=== PATIENT | female | born 1970 | race Caucasian/White ===

== ENCOUNTER 2020-04-18 17:02 | Outpatient (REF) | payer OTHER, SELFPAY ==
[2020-04-18 18:10] LABS: Glucose Urine UA NEG (NEG); Leukocyte Esterase Urine NEG (NEG); Nitrite Urine NEG (NEG); Specific Gravity - Urine 1.025 (1.005-1.025); Urine Blood NEG (NEG); Urine Ketones NEG (NEG); Urine Protein NEG (NEG-TRACE)
[2020-04-18 18:12] LABS: Appearance Urine CLEAR; Color Urine YELLOW
== END 2020-04-18 17:03 | disposition home or self-care (01) ==
LOC: HO.LAB 17:02
PROVIDERS: Visit Provider Internal Medicine
DX: R39.9 Unspecified symptoms and signs involving the genitourinary system (principal)
CPT/HCPCS: 81003

== ENCOUNTER 2020-04-28 10:43 | Outpatient (REF) | payer OTHER, SELFPAY ==
[2020-04-28 11:06] LABS: COVID-19 Test Negative (Negative)
== END 2020-04-28 10:44 | disposition home or self-care (01) ==
LOC: HO.EMPCOV 10:43
PROVIDERS: PCP Internal Medicine; Visit Provider Internal Medicine
DX: Z20.828 Contact with and (suspected) exposure to other viral communicable diseases (principal)
CPT/HCPCS: 87635; C9803

== ENCOUNTER 2020-05-16 14:46 | Outpatient (REF) | payer OTHER, SELFPAY ==
--- NOTE | 2020-05-16 | XR_ITS ---
EXAMINATION: XR LUMBOSACRAL SPINE CLINICAL INFORMATION: Pain COMPARISON: None TECHNIQUE: Three views of the lumbosacral spine. FINDINGS: Bone alignment is normal. No fracture or dislocation is seen. Disc spaces are normal. There is lower lumbar spine facet arthritis. XR/XR lumbar spine 2-3V IMPRESSION: Lower lumbar spine facet arthritis.
== END 2020-05-16 14:47 | disposition home or self-care (01) ==
LOC: HO.XRAY 14:46
PROVIDERS: PCP Internal Medicine; Visit Provider Internal Medicine
DX: M54.9 Dorsalgia, unspecified (principal)
CPT/HCPCS: 72100

== ENCOUNTER 2020-06-11 15:19 | Outpatient (REF) | payer OTHER, SELFPAY ==
[2020-06-11 15:59] LABS: COVID-19 Test Negative (Negative)
== END 2020-06-11 15:20 | disposition home or self-care (01) ==
LOC: HO.EMPCOV 15:19
PROVIDERS: Visit Provider Internal Medicine
DX: Z20.828 Contact with and (suspected) exposure to other viral communicable diseases (principal)
CPT/HCPCS: 87635

== ENCOUNTER 2020-06-21 14:37 | Outpatient (REF) | payer OTHER, SELFPAY ==
[2020-06-21 15:09] LABS: COVID-19 Test Negative (Negative); IDNOW Serial# 55D5AD1C
== END 2020-06-21 14:38 | disposition home or self-care (01) ==
LOC: HO.EMPCOV 14:37
PROVIDERS: Visit Provider Internal Medicine
DX: Z20.828 Contact with and (suspected) exposure to other viral communicable diseases (principal)
CPT/HCPCS: 36415; 87635; C9803

== ENCOUNTER 2020-07-11 15:46 | Outpatient (REF) | payer OTHER, SELFPAY ==
[2020-07-11 17:50] LABS: COVID-19 Test Negative (Negative); IDNOW Serial# 55D5AD1C
== END 2020-07-11 15:47 | disposition home or self-care (01) ==
LOC: HO.EMPCOV 15:46
PROVIDERS: Visit Provider Internal Medicine
DX: Z20.822 Contact with and (suspected) exposure to COVID-19 (principal)
CPT/HCPCS: 36415; 87635; C9803

== ENCOUNTER 2020-07-27 09:54 | Outpatient (REF) | payer OTHER, SELFPAY ==
--- NOTE | ~2020-07-27 | US_ITS ---
EXAMINATION: US PELVIS COMPLETE US PELVIS TRANSVAGINAL CLINICAL INFORMATION: Pelvic and perineal pain. COMPARISON: None TECHNIQUE: Transabdominal and transvaginal imaging was performed. FINDINGS: The uterus is of normal size and echogenicity measuring 7.2 x 3.2 x 3.8 cm. Tiny echogenic foci within the lower uterine segment/cervix as well as adjacent to the endometrium, which may represent small calcifications. A regular homogeneous endometrium is identified measuring 0.2 cm. Trace fluid within the endometrial cavity. The right ovary is sonographically unremarkable and measures 1.7 x 1.0 x 1.0 cm for a volume of 0.9 mL. The left ovary is not seen. Prominence of the left adnexal vasculature, which can be seen in the setting of pelvic congestion. There is no pelvic free fluid. US/US pelvic complete IMPRESSION: 1. Trace fluid within the endometrium. No endometrial thickening. Probable tiny calcifications associated with the endometrium and lower uterine segment/cervix. No discrete polyp or mass. 2. Sonographically unremarkable right ovary. Left ovary not seen. 3. Prominence of the left adnexal vasculature, which can be seen in the setting of pelvic congestion.
--- NOTE | ~2020-07-27 | US_ITS ---
EXAMINATION: US PELVIS COMPLETE US PELVIS TRANSVAGINAL CLINICAL INFORMATION: Pelvic and perineal pain. COMPARISON: None TECHNIQUE: Transabdominal and transvaginal imaging was performed. FINDINGS: The uterus is of normal size and echogenicity measuring 7.2 x 3.2 x 3.8 cm. Tiny echogenic foci within the lower uterine segment/cervix as well as adjacent to the endometrium, which may represent small calcifications. A regular homogeneous endometrium is identified measuring 0.2 cm. Trace fluid within the endometrial cavity. The right ovary is sonographically unremarkable and measures 1.7 x 1.0 x 1.0 cm for a volume of 0.9 mL. The left ovary is not seen. Prominence of the left adnexal vasculature, which can be seen in the setting of pelvic congestion. There is no pelvic free fluid. US/US transvaginal IMPRESSION: 1. Trace fluid within the endometrium. No endometrial thickening. Probable tiny calcifications associated with the endometrium and lower uterine segment/cervix. No discrete polyp or mass. 2. Sonographically unremarkable right ovary. Left ovary not seen. 3. Prominence of the left adnexal vasculature, which can be seen in the setting of pelvic congestion.
== END 2020-07-27 09:55 | disposition home or self-care (01) ==
LOC: HO.HMGCX 09:54
PROVIDERS: PCP Internal Medicine; Visit Provider Internal Medicine
DX: R10.2 Pelvic and perineal pain (principal)
CPT/HCPCS: 76830; 76856

== ENCOUNTER 2020-08-08 15:04 | Outpatient (REF) | payer OTHER, SELFPAY ==
[2020-08-08 16:18] LABS: COVID-19 Test Negative (Negative)
== END 2020-08-08 15:05 | disposition home or self-care (01) ==
LOC: HO.EMPCOV 15:04
PROVIDERS: Visit Provider Internal Medicine
DX: Z20.822 Contact with and (suspected) exposure to COVID-19 (principal)
CPT/HCPCS: 36415; 87635; C9803

== ENCOUNTER 2020-08-11 08:11 | Outpatient (REF) | payer OTHER, SELFPAY ==
--- NOTE | ~2020-08-11 | MM_ITS ---
EXAMINATION: MM SCREENING DIGITAL BREAST TOMOSYNTHESIS, BILATERAL CLINICAL INFORMATION: Screening. Asymptomatic. The lifetime risk of breast cancer based on the Tyrer-Cuzick Model is 16%. COMPARISON: Mammography: 08/06/2019, 08/22/2017, 08/21/2016 TECHNIQUE: Digital breast tomosynthesis is performed in both the craniocaudal and mediolateral oblique views along with computer-aided detection (CAD). Synthesized 2D images are generated from the tomosynthesis. FINDINGS: There are scattered areas of fibroglandular density (ACR BI-RADS breast composition Category b). Left breast is unremarkable. There is no architectural abnormality or mass or developing density. Neither breast shows abnormal calcifications. The skin contours are smooth. The right CC view has focal converging lines central breast just medial to midline, 5.6 cm from nipple. This could represent incompletely compressed glandular tissue. Patient will be recalled for additional imaging. The right MLO view has a dermal lesion overlying the posterior inferior lateral breast. There is also a 0.7 cm nodule 12 cm from nipple along the posterior nipple line, not previously imaged, possibly low lying axillary node. Definitive fatty hilus is not clearly appreciated. This will also be further assessed at time of recall. MM/MM tomosynthesis screening BI IMPRESSION: Right: -Finding 1: Question architectural changes central inner breast on CC view. -Finding 2: Nodule 0.7 cm posterior breast, possibly low axillary tail node. Left: -No mammographic evidence of malignancy. ASSESSMENT: BI-RADS 0: Incomplete - Need Additional Imaging Evaluation RECOMMENDATION: 1. Additional views of the right breast (finding 1: 3-D spot CC, 3-D rolled CC x2) and (finding 2: 3D spot MLO small paddle). 2. Targeted ultrasound if warranted after review of the additional views. 3. Radiology department staff will contact the patient for additional imaging. This patient's information was entered into a reminder system with a target due date for their next mammogram.
== END 2020-08-11 08:12 | disposition home or self-care (01) ==
LOC: HO.MAMMO 08:11
PROVIDERS: Visit Provider Internal Medicine
DX: Z12.31 Encounter for screening mammogram for malignant neoplasm of breast (principal)
CPT/HCPCS: 77063; 77067

== ENCOUNTER 2020-08-18 09:23 | Outpatient (REF) | payer OTHER, SELFPAY ==
--- NOTE | ~2020-08-18 | MM_ITS ---
EXAMINATION: MM DIAGNOSTIC DIGITAL BREAST TOMOSYNTHESIS, RIGHT US DIAGNOSTIC ULTRASOUND BREAST, RIGHT CLINICAL INFORMATION: Recall from screening for question of architectural changes inferior anterior right breast on CC tomography and for a second finding, benign-appearing nodule low axillary tail right breast. COMPARISON: Mammography: 08/11/2020, 08/06/2019, 08/22/2017 TECHNIQUE: Digital breast tomosynthesis is performed. 2D images are generated from the tomosynthesis. The following views are obtained: 3-D spot CC, 3-D rolled CC x2; 3-D spot MLO. Ultrasound right breast is targeted to the inferior breast 3:00 through 9:00 position. Ultrasound also targeted to the posterior lateral breast and low axilla. Grayscale imaging and color Doppler are performed without and with harmonics. FINDINGS: There are scattered areas of fibroglandular density (ACR BI-RADS breast composition Category b). Additional spot MLO view right axilla shows small circumscribed nodule low axillary tail with fatty hilus consistent with intramammary node. Additional views for the anterior breast demonstrates questionable converging lines on spot CC tomography, but no asymmetric density or architectural changes either on the rolled CC projections nor on recent MLO tomography. Ultrasound anterior inferior breasts demonstrate no cystic or solid mass or architectural abnormality. No focal duct ectasia. No skin thickening. Ultrasound posterior lateral breast/low axilla demonstrates incidental benign node under 1 cm with normal ramez architecture and color flow. Preliminary results are discussed with the patient at time of visit. No definite architectural abnormality anterior right breast. Management plan is for short interval six-month follow-up diagnostic mammography. MM/MM tomosynthesis added views R IMPRESSION: 1. No definite architectural abnormality anterior right breast. No ultrasound correlate. 2. Incidental small low right axillary tail node, benign. ASSESSMENT: BI-RADS 3: Probably Benign RECOMMENDATION: 1. Diagnostic right mammography in 6 months. 2. Comment: Patient noted she may be considering reduction mammoplasty. If this is anticipated to be performed prior to the 6 month follow up imaging, then may consider further assessment with breast MR. This patient's information was entered into a reminder system with a target due date for their next mammogram.
== END 2020-08-18 09:24 | disposition home or self-care (01) ==
LOC: HO.MAMMO 09:23
PROVIDERS: PCP Nurse Practitioner Women's Health; Visit Provider Internal Medicine
DX: N63.31 Unspecified lump in axillary tail of the right breast (principal)
CPT/HCPCS: 76642; 77061; 77065

== ENCOUNTER 2020-08-21 10:00 | Outpatient (RCR) | payer OTHER, SELFPAY | END 2020-10-13 15:07 | disposition home or self-care (01) | LOC: HO.PTCHIC 10:00 | PROVIDERS: PCP Internal Medicine; Visit Provider Physical Medicine & Rehabilitation | DX: M54.5 Low back pain (principal) | CPT/HCPCS: 97014; 97110; 97112; 97140; 97161; 97530 ==

== ENCOUNTER 2020-08-25 17:58 | Outpatient (REF) | payer OTHER, SELFPAY ==
--- NOTE | ~2020-08-25 | MR_ITS ---
EXAMINATION: MR LUMBAR SPINE WITHOUT CONTRAST CLINICAL INFORMATION: Evaluate for disc herniation. Left leg pain. Low back pain. COMPARISON: X-ray dated 05/16/2020 TECHNIQUE: MRI of the lumbar spine was obtained using routine sequences without contrast. FINDINGS: VERTEBRAL BODIES AND PARASPINAL STRUCTURES: There is dift-jr-emnzmvoi inferior endplate edema at the L5 level, presumably reactive with a small endplate Schmorl's node. No compression fractures or subluxations are seen. The paraspinal soft tissues appear normal. Small renal cysts noted. There are mild degenerative changes of the sacroiliac joints partially visualized. CONUS MEDULLARIS AND CAUDA EQUINA: Normal, terminating at the level of L1. No lower cord signal abnormality is seen. The cauda equina nerve roots are normal. SPINAL LEVELS: L1-L2: No disc pathology. No central canal stenosis or foraminal narrowing. L2-L3: Small left paracentral disc protrusion. No central canal stenosis or foraminal encroachment. L3-L4: No significant disc pathology. Patent central canal and foramina. L4-L5: Very small central disc protrusion without central canal stenosis or foraminal narrowing. L5-S1: Mild loss of disc height and shallow right paracentral disc protrusion with inferior endplate edema at the L5 level. Stgp-au-swcejfvz facet arthropathy, more so on the left side. No central canal stenosis or foraminal narrowing. MR/MR lumbar spine wo con IMPRESSION: Mild lumbar spondylosis with small disc protrusions at the L2-L3, L4-L5, and L5-S1 levels. No central canal stenosis or foraminal narrowing. Ppcr-og-yzkroevb inferior endplate edema at the L5 level, presumably reactive.
== END 2020-08-25 17:59 | disposition home or self-care (01) ==
LOC: HO.MRI 17:58
PROVIDERS: Visit Provider Physical Medicine & Rehabilitation
DX: M54.5 Low back pain (principal); M79.605 Pain in left leg
CPT/HCPCS: 72148

== ENCOUNTER 2020-08-28 15:00 | Outpatient (REF) | payer OTHER, SELFPAY ==
[2020-08-28 15:40] LABS: COVID-19 Test Negative (Negative)
== END 2020-08-28 15:01 | disposition home or self-care (01) ==
LOC: HO.LAB 15:00
PROVIDERS: Visit Provider Internal Medicine
DX: Z20.822 Contact with and (suspected) exposure to COVID-19 (principal)
CPT/HCPCS: 36415; 87635; C9803

== ENCOUNTER 2020-08-30 15:18 | Outpatient (REF) | payer OTHER, SELFPAY ==
[2020-08-30 15:41] LABS: COVID-19 Test Negative (Negative); IDNOW Serial# 55D5AD1C
== END 2020-08-30 15:19 | disposition home or self-care (01) ==
LOC: HO.EMPCOV 15:18
PROVIDERS: Visit Provider Internal Medicine
DX: Z20.822 Contact with and (suspected) exposure to COVID-19 (principal)
CPT/HCPCS: 36415; 87635; C9803

== ENCOUNTER 2020-12-09 10:50 | Outpatient (REF) | payer OTHER, SELFPAY ==
[2020-12-09 13:20] LABS: MANUAL DIFF FLAG NO
[2020-12-09 13:21] LABS: Basophils Percent Auto 0.2 % (0-2); Eosinophils Absolute Auto 0.1 X10*3/uL (0.0-0.4); Eosinophils Percent Auto 1.7 % (0-4); Hemoglobin 13.9 g/dl (12.0-16.0); Imm Gran Abs Auto 0.01 X10*3/uL (0.00-0.03); Imm Gran Pct Auto 0.2 % (0.0-0.4); Lymphocytes Absolute Auto 2.2 X10*3/uL (1.2-4.9); Lymphocytes Percent Auto 52.6 % (20-40); Mean Corpuscular HGB Conc 33.1 g/dl (31.0-35.0); Mean Corpuscular Hemoglobin 29.2 pg (27.0-33.0); Mean Corpuscular Volume 88.2 fL (80-98); Mean Platelet Volume 9.6 fL (9.4-12.3); Monocytes Absolute Auto 0.3 X10*3/uL (0.1-1.2); Monocytes Percent Auto 6.6 % (2-11); Neutrophils Absolute Auto 1.6 X10*3/uL (2.0-8.3); Neutrophils Percent Auto 38.7 % (45-73); Platelet Count 311 X10*3/uL (160-400); Red Blood Count 4.76 X10*6/uL (4.20-5.50); Red Cell Distribution Width 13.2 % (11.0-16.0); White Blood Count 4.2 X10*3/uL (4.8-10.8)
[2020-12-09 13:54] LABS: Alanine Aminotransferase 18 U/L (0-31); Albumin Level 4.2 g/dL (3.5-5.0); Alkaline Phosphatase 127 U/L (39-117); Anion Gap 14 (12-20); Aspartate Amino Transferase 18 U/L (5-31); Bilirubin Total 0.4 mg/dL (0.0-1.0); Blood Urea Nitrogen 15 mg/dL (9-16); Calcium 9.2 mg/dL (8.4-10.2); Carbon Dioxide 27 mmol/L (22-29); Chloride 104 mmol/L (96-108); Cholesterol 234 mg/dL; Estimated Glomerular Filt Rate > 60; Glucose Random 76 mg/dL (60-115); HDL Cholesterol 69 mg/dL; LDL Cholesterol Calculated 147 mg/dl; Potassium 4.1 mmol/L (3.3-5.1); Sodium 141 mmol/L (135-145); Total Protein 7.1 g/dL (6.5-8.0); Triglycerides 93 mg/dL
[2020-12-09 14:14] LABS: Vitamin D 25-OH Total 24.6 ng/mL (>30)
== END 2020-12-09 10:51 | disposition home or self-care (01) ==
LOC: HO.HMGCLDS 10:50
PROVIDERS: PCP Internal Medicine; Visit Provider Internal Medicine
DX: Z00.00 Encounter for general adult medical examination without abnormal findings (principal)
CPT/HCPCS: 36415; 80053; 80061; 82306; 85025

== ENCOUNTER 2021-03-07 13:25 | Outpatient (REF) | payer OTHER, SELFPAY ==
--- NOTE | ~2021-03-07 | MM_ITS ---
EXAMINATION: MM DIAGNOSTIC DIGITAL BREAST TOMOSYNTHESIS, RIGHT CLINICAL INFORMATION: Six-month follow-up right breast density The lifetime risk of breast cancer based on the Tyrer-Cuzick Model is 7.9%. COMPARISON: Mammography: August 18, 2020 and studies dating back to August 21, 2016 TECHNIQUE: Digital breast tomosynthesis is performed in both the craniocaudal and mediolateral oblique views along with computer-aided detection (CAD). Synthesized 2D images are generated from the tomosynthesis. FINDINGS: The breasts are heterogeneously dense, which may obscure small masses (ACR BI-RADS breast composition Category c). There are no significant masses, abnormal calcifications, or other abnormalities. Results are provided to the patient at time of visit by the technologist. MM/MM tomosynthesis diagnostic RT IMPRESSION: There are no significant changes from prior study. ASSESSMENT: BI-RADS 1: Negative RECOMMENDATION: Routine annual mammography screening, due in 6 months. This patient's information was entered into a reminder system with a target due date for their next mammogram.
== END 2021-03-07 13:26 | disposition home or self-care (01) ==
LOC: HO.MAMMO 13:25
PROVIDERS: Absent Provider Nurse Practitioner Women's Health; PCP Internal Medicine; Visit Provider Internal Medicine
DX: R92.2 Inconclusive mammogram (principal)
CPT/HCPCS: 77061; 77065

== ENCOUNTER 2021-03-20 00:45 | Emergency (ER) | payer OTHER, SELFPAY ==
[2021-03-20 01:01] VITALS: BP 129/69; PULSE 83; RESP 16; TEMP 36.8; O2SAT 94; BMI 27.3
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
[2021-03-20] MEDS: Cyclobenzaprine HCl 5 MG TABLET PO (02:13)
[2021-03-20] MEDS: Acetaminophen 325 MG TABLET 975 MG PO (02:13)
[2021-03-20] MEDS: Ketorolac Tromethamine 15 MG/ML VIAL IM (02:13)
[2021-03-20] MEDS: Lidocaine 4 % Patch ADH..PATCH 1 PATCH TRANSDERMA (02:14)
[2021-03-20 02:25] VITALS: BP 167/98; PULSE 78; RESP 16; O2SAT 99
== END 2021-03-20 03:13 | disposition home or self-care (01) ==
PROVIDERS: Emergency Provider Student in an Organized Health Care Education/Training Program
DX: M62.830 Muscle spasm of back (principal); M25.512 Pain in left shoulder; V49.40XA Driver injured in collision with unspecified motor vehicles in traffic accident, initial encounter; Y93.9 Activity, unspecified; Y92.9 Unspecified place or not applicable; Y99.9 Unspecified external cause status; J45.909 Unspecified asthma, uncomplicated; Z79.899 Other long term (current) drug therapy
CPT/HCPCS: 96372; 99284; J1885

== ENCOUNTER 2022-03-20 07:55 | Outpatient (REF) | payer OTHER, SELFPAY ==
[2022-03-20 11:15] LABS: Appearance Urine Clear; Color Urine Yellow; Glucose Urine UA Negative (Negative); Leukocyte Esterase Urine Trace (Negative); Nitrite Urine Negative (Negative); Specific Gravity - Urine 1.025 (1.005-1.025); UMIC TRIGGER UACC YES; Urine Blood Negative (Negative); Urine Ketones Negative (Negative); Urine Protein Negative (Neg-Trace)
[2022-03-20 11:21] LABS: Bacteria Urine None Seen (None Seen); Hyaline Casts Urine 0-2 /LPF (0-2); RBC Urine 0-2 /HPF (0-2); Squamous Epithelial Cell Urine 0-2 /HPF (0-2); WBC Urine 0-5 /HPF (0-5)
== END 2022-03-20 07:56 | disposition home or self-care (01) ==
LOC: HO.HMGCLDS 07:55
PROVIDERS: Visit Provider Obstetrics & Gynecology
DX: R31.9 Hematuria, unspecified (principal)
CPT/HCPCS: 81001; 87086; 87147

== ENCOUNTER → 2022-04-04 13:18 | Outpatient (RCR) | payer OTHER, SELFPAY ==
[2020-07-26 15:26] LABS: COVID-19 Test Negative (Negative); IDNOW Serial# 55D5AD1C
[2020-09-14 13:55] LABS: COVID-19 Test Negative (Negative); IDNOW Serial# 55D5AD1C
[2020-09-29 15:58] LABS: COVID-19 Test Negative (Negative)
[2020-10-11 15:49] LABS: COVID-19 Test Negative (Negative)
[2020-10-30 15:33] LABS: COVID-19 Test Negative (Negative); IDNOW Serial# 55D5AD1C
== END | disposition home or self-care (01) ==
LOC: HO.EMPCOV 07-26 14:57
PROVIDERS: Visit Provider Internal Medicine
DX: Z20.828 Contact with and (suspected) exposure to other viral communicable diseases (principal)
CPT/HCPCS: 36415; 87635; C9803

== ENCOUNTER 2022-06-11 05:56 | Outpatient (REF) | payer OTHER, SELFPAY ==
[2022-06-11 11:56] LABS: Estimated Average Glucose 105 mg/dL; Hemoglobin A1C 145.8579 umol/L; Hemoglobin A1c % 5.3 %
[2022-06-11 12:51] LABS: Alanine Aminotransferase 24 U/L (0-31); Albumin Level 4.2 g/dL (3.5-5.0); Alkaline Phosphatase 138 U/L (39-117); Aspartate Amino Transferase 20 U/L (5-31); Bilirubin Direct < 0.2 mg/dL (0.0-0.5); Bilirubin Total 0.4 mg/dL (0.0-1.0); Cholesterol 250 mg/dL; HDL Cholesterol 67 mg/dL; LDL Cholesterol Calculated 162 mg/dl; TSH reflex Free T4 1.84 uIU/mL (0.32-4.0); Total Protein 7.1 g/dL (6.5-8.0); Triglycerides 108 mg/dL; Vitamin D 25-OH Total 25.9 ng/mL (>30)
[2022-06-11 13:23] LABS: Vitamin B12 559 pg/mL (200-900)
== END 2022-06-11 05:57 | disposition home or self-care (01) ==
LOC: HO.HMGCLDS 05:56
PROVIDERS: Visit Provider Internal Medicine
DX: Z00.00 Encounter for general adult medical examination without abnormal findings (principal); E53.8 Deficiency of other specified B group vitamins; R73.9 Hyperglycemia, unspecified
CPT/HCPCS: 36415; 80061; 80076; 82306; 82607; 83036; 84443

== ENCOUNTER → 2022-07-09 15:23 | Outpatient (BNVA) | payer OTHER, SELFPAY | PROVIDERS: PCP Internal Medicine; Visit Provider Internal Medicine | DX: Z13.89 Encounter for screening for other disorder (principal) ==

== ENCOUNTER 2022-07-10 06:02 | Outpatient (REF) | payer OTHER, SELFPAY ==
[2022-07-10 11:32] LABS: Hematocrit 43.5 % (37.0-47.0); Hemoglobin 14.1 g/dl (12.0-16.0); Mean Corpuscular HGB Conc 32.4 g/dl (31.0-35.0); Mean Corpuscular Hemoglobin 28.7 pg (27.0-33.0); Mean Corpuscular Volume 88.4 fL (80.0-98.0); Mean Platelet Volume 10.2 fL (9.4-12.3); Platelet Count 293 X10*3/uL (160-400); Red Blood Count 4.92 X10*6/uL (4.20-5.50)
[2022-07-10 12:31] LABS: HBc Num1 0.06 S/CO (0.00-0.79); HBsAGNum1 0.26 S/CO (0.00-0.99); Hepatitis A Antibody IgG REACTIVE (Nonreactive); Hepatitis B Core Antibody Nonreactive (Nonreactive); Hepatitis B Surface Antigen Negative (Negative); ~HepC Num1 0.04 S/CO (0.00-0.79); ~Hepatitis A Antibody IgG 10.99 S/CO (0.00-0.99); ~Hepatitis C Antibody Nonreactive (Nonreactive)
[2022-07-10 12:32] LABS: Alanine Aminotransferase 18 U/L (0-31); Albumin Level 4.1 g/dL (3.5-5.0); Alkaline Phosphatase 130 U/L (39-117); Aspartate Amino Transferase 15 U/L (5-31); Bilirubin Direct < 0.2 mg/dL (0.0-0.5); Bilirubin Total 0.5 mg/dL (0.0-1.0); Gamma Glutamyl Transpeptidase 35 U/L (7-33); TSH reflex Free T4 1.36 uIU/mL (0.32-4.0); Total Protein 6.9 g/dL (6.5-8.0); Vitamin D 25-OH Total 25.1 ng/mL (>30)
[2022-07-10 12:58] LABS: HBS Num1 3.19 mIU/mL (0-7.99); ~Hepatitis B Surface Antibody NONREACTIVE (Nonreactive)
[2022-07-12 14:17] LABS: Immunoglobulin A 348 mg/dL (47-310)
[2022-07-12 17:58] LABS: Transglutaminase IgA <1.0 U/mL
[2022-07-16 13:09] LABS: Alk.Phos Iso. Macrohepatic 0 % (<=0); Alk.Phos Isoenzymes Bone 58 % (28-66); Alk.Phos Isoenzymes Intest 5 % (1-24); Alk.Phos Isoenzymes Liver 37 % (25-69); Alk.Phos Isoenzymes Placental 0 % (<=0); Alk.Phos Isoenzymes Total 111 U/L (37-153)
== END 2022-07-10 06:03 | disposition home or self-care (01) ==
LOC: HO.HMGCLDS 06:02
PROVIDERS: PCP Internal Medicine; Visit Provider Internal Medicine
DX: R10.9 Unspecified abdominal pain (principal)
CPT/HCPCS: 36415; 80076; 82306; 82784; 82977; 84080; 84443; 85027; 86364; 86704; 86706; 86708; 86803; 87340

== ENCOUNTER 2022-07-11 08:21 | Outpatient (REF) | payer OTHER, SELFPAY ==
--- NOTE | ~2022-07-11 | US_ITS ---
EXAMINATION: US ABDOMEN COMPLETE CLINICAL INFORMATION: Unspecified abdominal pain. COMPARISON: Limited abdominal ultrasound 04/07/2019. TECHNIQUE: Real-time imaging of the abdominal viscera. FINDINGS: PANCREAS: Normal. ABDOMINAL AORTA: The proximal, mid, and distal segments are normal in caliber. INFERIOR VENA CAVA: Visualized portions are normal. LIVER: The liver is normal in size. The liver contour is normal. There is slight increased liver echogenicity. No focal hepatic lesion. There is no intrahepatic biliary duct dilatation seen. GALLBLADDER: Gallbladder wall thickness is 0.18 The gallbladder is physiologically distended without evidence of stones, sludge, polyps, wall thickening or pericholecystic fluid. COMMON BILE DUCT: Normal in caliber measuring 0.3 cm in diameter. RIGHT KIDNEY: Normal. No hydronephrosis. No renal calculi or focal parenchymal lesions. The kidney measures 8.8 cm in maximum dimension. LEFT KIDNEY: Normal. No hydronephrosis. No renal calculi or focal parenchymal lesions. The kidney measures 9.7 cm in maximum dimension. SPLEEN: Normal. The spleen measures 7.5 cm in maximum dimension. FREE FLUID: None. US/US abdomen complete IMPRESSION: 1. Mild increased liver echogenicity. No focal lesion is seen. 2. The rest of the abdominal ultrasound is unremarkable.
== END 2022-07-11 08:22 | disposition home or self-care (01) ==
LOC: HO.HMGCX 08:21
PROVIDERS: PCP Internal Medicine; Visit Provider Internal Medicine
DX: R10.9 Unspecified abdominal pain (principal)
CPT/HCPCS: 76700

== ENCOUNTER 2022-08-29 06:23 | Day surgery (SDC) | payer OTHER, SELFPAY ==
[2022-08-23 13:07] VITALS: BMI 27.8
--- NOTE | 2022-08-28 14:07 | P.CONAN_ITS ---
Documented by User: Bhavna He NP 08/28/22 14:08 HPI - Anesthesia Eval Consult details Narrative: 52yo F for Upper Endoscopy and Colonoscopy PMFSH Active Problems Active Problems: All Active Problems (Updated 07/09/22 @ 15:59 by Cristy Hogan MD) Elevated alkaline phosphatase level (Acute) Bright red rectal bleeding (Acute) Abdominal pain (Acute) Cervical muscle strain (Acute) Trapezius muscle spasm (Acute) Past Medical History Medical History Asthma Perforated bowel Surgical History Surgical History H/O abdominoplasty H/O bilateral breast reduction surgery Hx of colonoscopy Social History Social History Patient Tobacco Use Status: Never used Tobacco Use of substances other than those prescribed or required for medical reasons: No Are you DNR?: No Advance Directives: No Advance Directives Information Provided: Yes Recently lost weight without trying: No Nutrition Risks: No Nutritional Risk Meds Allergies Allergy/AdvReac Type Severity Reaction Status Date / Time hydrocodone [HYDROCODONE] Allergy Unknown HYPOTENSION, Verified 07/09/22 15:27 VOMITING, WEAKNESS oxycodone [From PERCOCET] Allergy Unknown vomiting Verified 07/09/22 15:27 tramadol [TRAMADOL] Allergy Unknown vomiting Verified 07/09/22 15:27 Home Medications Medication Instructions Recorded Confirmed Last Taken Type melatonin 10 mg capsule 10 mg PO BEDTIME PRN Insomnia 09/17/21 08/29/22 Unknown History albuterol sulfate 90 mcg/actuation 2 puff inhalation Q6H PRN wheezing 07/09/22 08/29/22 Unknown History aerosol inhaler hydroxyzine HCl 25 mg tablet 25 mg PO DAILY PRN anxiety 07/09/22 08/29/22 Unknown History lorazepam 0.5 mg tablet 0.5 mg PO DAILY PRN Anxiety 07/09/22 08/29/22 Unknown History mecobalamin (vitamin B12) 1,000 1,000 mcg PO DAILY 07/09/22 08/29/22 Unknown History mcg lozenges riboflavin (vitamin B2) 400 mg 400 mg PO DAILY 07/09/22 08/29/22 Unknown History tablet Exam Exam Date and Time: August 28, 2022 1407 Height,Weight and Vital Signs: Height 5 ft 1 in Weight 66.678 kg Assessment and Plan Assessment Anesthesia Assessment: Chart Reviewed Documented by User: Vanessa Romano MD 08/29/22 07:41 [facility] Past Medical History Medical History Asthma Perforated bowel Surgical History Surgical History H/O abdominoplasty H/O bilateral breast reduction surgery Hx of colonoscopy History of Problems with Anesthesia: No Social History Social History Patient Tobacco Use Status: Never used Tobacco Use of substances other than those prescribed or required for medical reasons: No Are you DNR?: No Advance Directives: No Advance Directives Information Provided: Yes Recently lost weight without trying: No Nutrition Risks: No Nutritional Risk Meds Allergies Allergy/AdvReac Type Severity Reaction Status Date / Time hydrocodone [HYDROCODONE] Allergy Unknown HYPOTENSION, Verified 07/09/22 15:27 VOMITING, WEAKNESS oxycodone [From PERCOCET] Allergy Unknown vomiting Verified 07/09/22 15:27 tramadol [TRAMADOL] Allergy Unknown vomiting Verified 07/09/22 15:27 Home Medications Medication Instructions Recorded Confirmed Last Taken Type melatonin 10 mg capsule 10 mg PO BEDTIME PRN Insomnia 09/17/21 08/29/22 Unknown History albuterol sulfate 90 mcg/actuation 2 puff inhalation Q6H PRN wheezing 07/09/22 08/29/22 Unknown History aerosol inhaler hydroxyzine HCl 25 mg tablet 25 mg PO DAILY PRN anxiety 07/09/22 08/29/22 Unknown History lorazepam 0.5 mg tablet 0.5 mg PO DAILY PRN Anxiety 07/09/22 08/29/22 Unknown History mecobalamin (vitamin B12) 1,000 1,000 mcg PO DAILY 07/09/22 08/29/22 Unknown History mcg lozenges riboflavin (vitamin B2) 400 mg 400 mg PO DAILY 07/09/22 08/29/22 Unknown History tablet Exam Airway Mallampati Class: II TM Dist: >3cm Neck ROM: Full Loose/Missing/Broken Teeth: No Heart: RRR Lungs: CTA Assessment and Plan Assessment Anesthesia Assessment: Anesthesia Plan Discussed Final Anesthetic Review History of Problems with Anesthesia: No NPO: Yes ASA Class: II Final Preanesthetic Review: Meds/Allgs Chart Reviewed, Consent Obtained/Reviewed and Anes Risks/Benef Reviewed Patient Risk: Low Procedure Risk: Intermediate Anesthetic Plan Anesthetic Plan: MAC: Disposition: Standard PACU
[2022-08-29 06:57] VITALS: BMI 27.8
[2022-08-29 07:16] VITALS: BP 108/71; PULSE 68; RESP 16; TEMP 36.9; O2SAT 97
[2022-08-29] MEDS: Lactated Ringers 1,000 ML 100 ML IVCONT (07:25)
--- NOTE | 2022-08-29 07:48 | MHC.SHP ---
Pre-Procedural Eval Section A Date of Service: 08/29/22 Section B Chief Complaint: abd pain,bleeding Details of Present Illness: Medical History Asthma Surgical History Hx of colonoscopy Relevant Family History (Specify if Yes): No Relevant Social History: None Present Medications: see Short Stay Collaborative assessment Allergies: Allergies Allergy/AdvReac Type Severity Reaction Status Date / Time hydrocodone [HYDROCODONE] Allergy Unknown HYPOTENSION, Verified 07/09/22 15:27 VOMITING, WEAKNESS oxycodone [From PERCOCET] Allergy Unknown vomiting Verified 07/09/22 15:27 tramadol [TRAMADOL] Allergy Unknown vomiting Verified 07/09/22 15:27 Review of Systems Review of Systems Comment: 10 point ROS negative except as above Exam Exam Comment: Gen appear: No acute distress HEENT: no icterus Chest: No overt resp distress Abd: soft, nontender, nondistended Psych: Stable affect, answering questions appropriately Neuro: A/Ox3 noted to move all extremities spontaneously Ext: no peripheral edema Plan Diagnosis/Plan: Unchanged I have reviewed the history and physical and performed a pertinent physical examination on my patient. No changes have occurred unless specified. Time Spent With Patient Time: Total time managing care of this patient today ____ minutes.
[2022-08-29 08:30] VITALS: BP 104/62; PULSE 68; RESP 16; TEMP 36.2; O2SAT 95
--- NOTE | 2022-08-29 08:30 | P.OP_ITS ---
Operative Note Operative Note Date of Service: 08/29/22 Narrative: Procedure:?Esophagogastroduodenoscopy and Colonoscopy Indication:?Abd pain and rectal bleeding Endoscopist:?Cristy Hogan MD Anesthesia Provider:?Dr Vanessa Romano Anesthesia type:?MAC Instrument:?Olympus GIF-H190, PCF-H190L EGD Procedure:?? The procedure, indications, preparation and potential complications were reviewed with the patient, who indicated understanding and gave written informed consent to proceed. A physical exam was performed. The endoscope was introduced through the mouth, and advanced to the proximal jejunum. The mucosa was carefully examined on slow withdrawal of the endoscope. The patient tolerated the procedure well. There were no immediate complications.? ? EGD Findings:? * Esophagus: The GE junction was at 33 cm. Small hiatal hernia was noted with diaphragmatic pinch at 35 cm. A non obstructing Schatzki's ring was seen with small erosions which were not bleeding. * Stomach:?Erosions and heme noted in the body of the stomach. Retroflexion confirmed the size and morphology of thehiatal hernia with Hill grade III.?Random cold forceps biopsies were taken to rule out H pylori. * Duodenum:? Normal mucosa to the extent seen.? Cold forceps biopsies were taken duodenal bulb and 2nd portion of the duodenum to rule out celiac sprue. * Jejunim: Normal mucosa to the extent seen. Colonoscopy Procedure:? The patient was then turned for the colonoscopy. A digital rectal exam was performed which was abnormal for external hemorrhoids.? A distal attachment cap was affixed to the tip of the scope and the colonoscope was then inserted through the anus and advanced through the colon to the cecum at 110 cm and terminal ileum. The appendiceal orifice and ileocecal valve was identified.? Mucosa was carefully examined under high definition white light as the instrument was slowly withdrawn in a retrograde panoramic fashion.? Retroflexion was performed in rectum. The procedure was difficult due to looping in sigmoid colon and a very sharp hepatic flexure requiring L sided lift to intubate the cecum. The distal attachment came off while traversing through the flexure. There were no immediate obvious complications. The quality of the prep was BBPS: 2+2+3 = adequate Withdrawal time 7 minutes. Limitations: No limitations. Colonoscopy Findings: Mucosa: Normal mucosa in whole colon and terminal ileum. Protruding lesions: * Large internal hemorrhoids with stigmata of recent bleeding. Exacavated lesions: * Moderate diverticulosis of sigmoid colon. Impression:? * Grade A esophagitis * Nonobstructing Schatzki's ring * Hiatal hernia * Gastritis (biopsy) * Normal duodenum (biopsy) * Normal colon and terminal ileum mucosa * Diverticulosis * Bleeding internal hemorrhoids Recommendations: * Await path results.? * If H pylori positive, pt will be prescribed eradication therapy. * She was also advised to take PPI daily as opposed to PRN * Referral to surgery requested for bleeding hemorrhoids * She was advised that she will spontaneously pass the distal attachment cap (that inadvertently came off) in her stool. * Repeat colonoscopy in 10 years for asymptomatic colon cancer screening
[2022-08-29 08:45] VITALS: BP 111/71; PULSE 60; RESP 16; TEMP 36.9; O2SAT 96
== END 2022-08-29 09:33 | disposition home or self-care (01) ==
PROVIDERS: PCP Internal Medicine; Visit Provider Internal Medicine
PROC: (CPT 45378; principal; 2022-08-29 07:30)
DX: K62.5 Hemorrhage of anus and rectum (principal); K57.30 Diverticulosis of large intestine without perforation or abscess without bleeding; K64.8 Other hemorrhoids; K64.4 Residual hemorrhoidal skin tags; K59.00 Constipation, unspecified; R10.9 Unspecified abdominal pain; R74.8 Abnormal levels of other serum enzymes; K29.50 Unspecified chronic gastritis without bleeding; K20.80 Other esophagitis without bleeding; K44.9 Diaphragmatic hernia without obstruction or gangrene; K22.2 Esophageal obstruction; J45.909 Unspecified asthma, uncomplicated; Z88.8 Allergy status to other drugs, medicaments and biological substances; Z79.899 Other long term (current) drug therapy
CPT/HCPCS: 45378; 43239; 88305; 88342

== ENCOUNTER → 2022-09-16 15:33 | Outpatient (BNVA) | payer OTHER, SELFPAY | PROVIDERS: PCP Internal Medicine; Visit Provider Internal Medicine | DX: Z13.89 Encounter for screening for other disorder (principal) ==

== ENCOUNTER → 2022-09-23 15:25 | Outpatient (BNVA) | payer OTHER, SELFPAY | PROVIDERS: PCP Internal Medicine; Referring Provider Internal Medicine; Visit Provider Surgery | DX: Z13.89 Encounter for screening for other disorder (principal) ==

== ENCOUNTER 2022-11-01 14:31 | Outpatient (REF) | payer OTHER, SELFPAY ==
--- NOTE | ~2022-11-01 | MM_ITS ---
EXAMINATION: MM SCREENING DIGITAL BREAST TOMOSYNTHESIS, BILATERAL CLINICAL INFORMATION: Screening. Asymptomatic. Status post reduction mammoplasty. The lifetime risk of breast cancer based on the Tyrer-Cuzick Model is 7%. COMPARISON: Mammography: 03/07/2021, 08/18/2020, 08/11/2020, 08/06/2019; outside mammography 08/22/2017 ([facility]).b TECHNIQUE: Digital breast tomosynthesis is performed in both the craniocaudal and mediolateral oblique views along with computer-aided detection (CAD). Synthesized 2D images are generated from the tomosynthesis. FINDINGS: There are scattered areas of fibroglandular density (ACR BI-RADS breast composition Category b). Breast tissue composition borders on heterogeneously dense. There is interval bilateral decreased breast size and minor bilateral scarring consistent with the history reduction mammoplasty. There is no significant mass or abnormal calcifications. The axilla are unremarkable. No significant changes. MM/MM tomosynthesis screening BI IMPRESSION: -No mammographic evidence of malignancy. -Bilateral benign reduction mammoplasty changes. ASSESSMENT: BI-RADS 2: Benign RECOMMENDATION: Routine annual mammography screening. This patient's information was entered into a reminder system with a target due date for their next mammogram.
== END 2022-11-01 14:32 | disposition home or self-care (01) ==
LOC: HO.MAMMO 14:31
PROVIDERS: Visit Provider Internal Medicine
DX: Z12.31 Encounter for screening mammogram for malignant neoplasm of breast (principal)
CPT/HCPCS: 77063; 77067

== ENCOUNTER 2022-12-24 15:39 | Outpatient (AMB) | payer OTHER, SELFPAY ==
--- NOTE | 2022-12-24 15:57 | MHC.OFFVIS ---
Intake Vital Signs 12/24/22 16:00 Height 5 ft 1 in Weight 147 lb 11.355 oz BMI 27.9 BP 121/72 Blood Pressure Location Lt brachial Position Sitting Pulse 70 Intake Visit Reasons: 3 month follow up Intake Note: Alva presents in the office as a 3 month follow up. CC: She states that she is still taking pantoprazole. When she dont take it she gets pains in her stomach and she would like to know whats causing it. Allergies hydrocodone [HYDROCODONE] Allergy (Unknown, Verified 12/24/22 16:00) HYPOTENSION, VOMITING, WEAKNESS oxycodone [From PERCOCET] Allergy (Unknown, Verified 12/24/22 16:00) vomiting tramadol [TRAMADOL] Allergy (Unknown, Verified 12/24/22 16:00) vomiting HPI HPI Comments History of Present Illness Details 52 y.o F with PMH of who is here to for follow up: 07/09/22: RUQ pain last month that started at work which progressively got worse over a few hours. Lasted for 2 days. Associated with nausea, no radiation. Was able to eat with this. No fevers but did have chills. Never had this pain before. Has gallbladder in situ. Takes tylenol and naproxen 1-3 times a month. Has been taking pantoprazole 40 since this episode which she thinks has helped. Of note, sister had cholecystectomy in her 40s. She also wishes to discuss colon cancer screening. Her last colonoscopy was many years ago when she had rectal bleeding was told she has hemorrhoids. Constipated at baseline and does not changes in bowel habits but does frequently see fresh blood in toilet bowl after straining for a BM. Occurs almost every month. Last episode was last week, can also sometimes feel hemorrhoids protruding downwards. No fam hx of colon cancer or advanced polyps. 08/29/22: EGD/[place] Grade A esophagitis Nonobstructing Schatzki's ring Hiatal hernia Gastritis (biopsy) Normal duodenum (biopsy) Normal colon and terminal ileum mucosa Diverticulosis Bleeding internal hemorrhoids Path: A. Duodenum, biopsy: Chronic inactive duodenitis. B. Stomach, random, biopsy: Oxyntic mucosa with mild chronic inactive inflammation; no Helicobacter organisms seen. 09/16/22: Currently no acute gastrointestinal sx. Has noticed some food triggers for heartburn and tries to avoid them. Otherwise no RUQ pain or nausea. On PPI BID since the scope. Has also been referred to surg for bleeding hemorrhoids, however quite hesitant re the surgery itself. 12/25/22: Has been seen by Dr Baez for ? hemorrhoidectomy and pt would like to hold off at this point. Was not able to get topical lidocaine/hydrocortisone for [place] application due to insurance cost however was able to get anusol suppositories and sx of rectal discomfort, fullness and bleeding resolved within 7-10 days. Currently, no gastrointestinal complaints. She tried to come off the PPI but had recurrence of heartburn and wonders if she needs it lifelong. COUNT INCLUDES [facility] Medical History Asthma Perforated bowel Surgical History H/O abdominoplasty H/O bilateral breast reduction surgery History of esophagogastroduodenoscopy (EGD) Hx of colonoscopy Social History Patient Tobacco Use Status: Never used Tobacco Review of Systems Const All systems reviewed & are unremarkable except as noted in HPI and below Physical Exam Vital Signs: Last Vital Signs Pulse 70 12/24/22 16:00 BP 121/72 12/24/22 16:00 BMI result Body Mass Index 27.9 Gen appear: NAD HEENT: nonicteric, no cervical lymphadenopathy Chest: CTA CVS: Regular S1/S2 Abd: soft, nontender, nondistended, bowel sounds + Ext: no peripheral edema Neuro: A/Ox3, noted to move all extremities spontaneously Psych: interacting appropriately Assessment & Plan Assessment & Plan (1) Abdominal pain: Code(s): R10.9 - Unspecified abdominal pain (2) Hiatal hernia: Code(s): K44.9 - Diaphragmatic hernia without obstruction or gangrene (3) GERD with esophagitis: Code(s): K21.00 - Gastro-esophageal reflux disease with esophagitis, without bleeding (4) Bright red rectal bleeding: Code(s): K62.5 - Hemorrhage of anus and rectum Plan 1. Esophagitis/GERD Reviewed with the pt that she has endoscopically proven evidence of GERD with esophagitis noted on EGD. Would likely need lifelong PPI therapy but that can be reduced to minimum tolerated dose. Hiatal hernia is small and typically repair not indicated if GERD medically controlled however happy to refer her to foregut surgeon for further evaluation if she prefers. Plan: - Decrease pantoprazole to 40mg once daily - Pt will discuss the referral for HH repair with her daughter (who works in [employer]) and get back to us 2. Bleeding hemorrhoids Currently asymptomatic. Plan: - Avoid straining and constipation - Cont fiber supplementation Follow up in 1 year Medications: Refilled pantoprazole 40 mg PO DAILY 90 tabs 2RF Coding Level of Care Code Est Pt Level 4 (95347) Diagnoses Abdominal pain R10.9 Hiatal hernia K44.9 GERD with esophagitis K21.00 Bright red rectal bleeding K62.5
[2022-12-24 16:00] VITALS: BP 121/72; PULSE 70; BMI 27.9
== END 2022-12-24 16:23 | disposition home or self-care (01) ==
PROVIDERS: PCP Internal Medicine; Visit Provider Internal Medicine
DX: R10.9 Unspecified abdominal pain (principal); K44.9 Diaphragmatic hernia without obstruction or gangrene; K21.00 Gastro-esophageal reflux disease with esophagitis, without bleeding; K62.5 Hemorrhage of anus and rectum
CPT/HCPCS: 99214

== ENCOUNTER → 2022-12-24 15:39 | Outpatient (BNVA) | payer OTHER, SELFPAY | PROVIDERS: PCP Internal Medicine; Visit Provider Internal Medicine ==

== ENCOUNTER 2023-04-26 06:27 | Outpatient (REF) | payer OTHER, SELFPAY ==
--- NOTE | ~2023-04-26 | XR_ITS ---
EXAMINATION: XR HAND, RIGHT CLINICAL INFORMATION: Trauma. COMPARISON: None available. TECHNIQUE: PA, lateral, and oblique views of the right hand. XR/XR hand RT min 3V FINDINGS/IMPRESSION: The clinical history provided does not indicate exactly where pathology is suspected, limiting sensitivity and specificity of this study. Clinical correlation is therefore recommended. There is no acute bony radiographic finding. Suspect mild soft tissue swelling over the third distal phalanx. No fracture or dislocation is appreciated. Bony mineralization appears preserved. The joint spaces appear maintained.
== END 2023-04-26 06:28 | disposition home or self-care (01) ==
LOC: HO.HMGCX 06:27
PROVIDERS: PCP Internal Medicine; Visit Provider Nurse Practitioner Family
DX: S60.211A Contusion of right wrist, initial encounter (principal); M79.641 Pain in right hand
CPT/HCPCS: 73130

== ENCOUNTER → 2023-05-12 13:28 | Outpatient (BNVA) | payer OTHER, SELFPAY | PROVIDERS: PCP Internal Medicine; Visit Provider Physician Assistant Medical | DX: Z13.89 Encounter for screening for other disorder (principal) | CPT/HCPCS: 99203 ==

== ENCOUNTER 2023-06-06 05:58 | Outpatient (REF) | payer OTHER, SELFPAY ==
[2023-06-06 11:19] LABS: MANUAL DIFF FLAG NO
[2023-06-06 11:23] LABS: Basophils Percent Auto 0.2 % (0-2); Eosinophils Percent Auto 0.9 % (0-4); Hematocrit 44.2 % (37.0-47.0); Hemoglobin 14.5 g/dl (12.0-16.0); Imm Gran Abs Auto 0.01 X10*3/uL (0.00-0.03); Imm Gran Pct Auto 0.2 % (0.0-0.4); Lymphocytes Absolute Auto 2.3 X10*3/uL (1.2-4.9); Lymphocytes Percent Auto 50.3 % (20-40); Mean Corpuscular HGB Conc 32.8 g/dl (31.0-35.0); Mean Corpuscular Hemoglobin 29.3 pg (27.0-33.0); Mean Corpuscular Volume 89.3 fL (80.0-98.0); Mean Platelet Volume 9.9 fL (9.4-12.3); Monocytes Absolute Auto 0.3 X10*3/uL (0.1-1.2); Monocytes Percent Auto 6.3 % (2-11); Neutrophils Absolute Auto 1.9 x10*3/uL (2.0-8.3); Neutrophils Percent Auto 42.1 % (45-73); Platelet Count 328 X10*3/uL (160-400); Red Blood Count 4.95 X10*6/uL (4.20-5.50); Red Cell Distribution Width 13.2 % (11.0-16.0); White Blood Count 4.6 X10*3/uL (4.8-10.8)
[2023-06-06 11:54] LABS: Alanine Aminotransferase 36 U/L (0-31); Albumin Level 4.4 g/dL (3.5-5.0); Alkaline Phosphatase 125 U/L (39-117); Anion Gap 10 (12-20); Aspartate Amino Transferase 25 U/L (5-31); Bilirubin Total 0.5 mg/dL (0.0-1.0); Blood Urea Nitrogen 23 mg/dL (9-16); Calcium 9.4 mg/dL (8.4-10.2); Carbon Dioxide 28 mmol/L (22-29); Chloride 103 mmol/L (96-108); Cholesterol 245 mg/dL (<200); Estimated Glomerular Filt Rate > 60; Glucose Fasting 76 mg/dL (60-99); HDL Cholesterol 70 mg/dL (>40); LDL Cholesterol Calculated 156 mg/dL (<100); Potassium 4.4 mmol/L (3.3-5.1); Sodium 137 mmol/L (135-145); Total Protein 7.8 g/dL (6.5-8.0); Triglycerides 99 mg/dL (<150)
[2023-06-06 12:09] LABS: TSH reflex Free T4 0.93 uIU/mL (0.32-4.0)
[2023-06-06 12:19] LABS: Appearance Urine Clear; Color Urine Yellow; Glucose Urine UA Negative (Negative); Leukocyte Esterase Urine Negative (Negative); Nitrite Urine Negative (Negative); PH 6.5 (5.0-9.0); Specific Gravity - Urine 1.025 (1.005-1.025); Urine Blood Negative (Negative); Urine Ketones Negative (Negative); Urine Protein Negative (Neg-Trace)
== END 2023-06-06 05:59 | disposition home or self-care (01) ==
LOC: HO.HMGCLDS 05:58
PROVIDERS: PCP Internal Medicine; Visit Provider Nurse Practitioner Family
DX: R35.89 Other polyuria (principal); Z83.3 Family history of diabetes mellitus
CPT/HCPCS: 36415; 80053; 80061; 81003; 84443; 85025

== ENCOUNTER → 2023-06-27 15:18 | Outpatient (BNVA) | payer OTHER, SELFPAY | PROVIDERS: PCP Internal Medicine | DX: Z13.89 Encounter for screening for other disorder (principal) | CPT/HCPCS: 84450; 84460; 87389; 99211 ==

== ENCOUNTER 2023-08-21 10:22 | Outpatient (REF) | payer OTHER, SELFPAY ==
--- NOTE | ~2023-08-21 | US_ITS ---
EXAMINATION: US LOWER EXTREMITY (REFLUX EXAM), LEFT CLINICAL INDICATION: Left lower extremity pain, venous insufficiency COMPARISON: None. TECHNIQUE: Color flow triplex imaging and compression Doppler was performed to evaluate both the deep and the superficial systems of the left lower extremity. To evaluate the superficial system, the examination was performed in the upright position. Color-flow Doppler ultrasound and compression ultrasound were utilized. In addition, maneuvers were utilized to demonstrate reflux. FINDINGS: 1. DEEP VENOUS DOPPLER ULTRASOUND: Common Femoral Vein: Compressible, normal respiratory variation and augmented flow. Femoral Vein: Compressible, normal color flow and augmentation. Popliteal Vein: Compressible, normal augmentation. Deep Reflux: There is no evidence of reflux in the deep system in either the common femoral vein, superficial femoral vein or the popliteal vein. There is a Belle's cyst in the popliteal fossa measuring 2.7 x 1.2 x 2.0 cm 2. SUPERFICIAL VENOUS DOPPLER ULTRASOUND: GREAT SAPHENOUS VEIN: Saphenofemoral Junction: 0.8 cm; Reflux: 0 ms Proximal Thigh: 0.4 cm; Reflux: 0 ms Mid Thigh: 0.2 cm; Reflux: 0 ms Above Knee: 0.2 cm; Reflux: 0 ms At Knee: 0.3 cm; Reflux: 0 ms Below Knee: 0.2 cm; Reflux: 0 ms Mid Calf: 0.3 cm; Reflux: 0 ms Ankle: 0.2 cm; Reflux: 0 ms DUPLICATED MEDIAL GREAT SAPHENOUS VEIN: Diameter: None imaged Reflux: NA DUPLICATED LATERAL GREAT SAPHENOUS VEIN: Diameter: 0.4 cm Reflux: None SMALL SAPHENOUS VEIN: Saphenopopliteal Junction: 0.2 cm; Reflux: 0 ms Proximal: 0.2 cm; Reflux: 0 ms Distal: 0.1 cm; Reflux: 0 ms VEIN OF GIACOMINI: Size: NA Reflux: NA PERFORATORS: Location: Proximal thigh Size: 0.3 cm Reflux: None VARICOSITIES: Location: None imaged Size: NA Reflux: NA US/US venous duplex LE LT IMPRESSION: No significant venous insufficiency or reflux in the great saphenous vein or small saphenous vein
== END 2023-08-21 10:23 | disposition home or self-care (01) ==
LOC: HO.US 10:22
PROVIDERS: PCP Internal Medicine; Visit Provider Nurse Practitioner Family
DX: M79.605 Pain in left leg (principal); M79.89 Other specified soft tissue disorders
CPT/HCPCS: 93971

== ENCOUNTER → 2023-08-21 11:19 | Outpatient (BNVA) | payer OTHER, SELFPAY | PROVIDERS: PCP Internal Medicine | DX: Z13.89 Encounter for screening for other disorder (principal) | CPT/HCPCS: 84450; 84460; 86803; 87389; 99211 ==

== ENCOUNTER 2023-10-10 07:43 | Outpatient (REF) | payer OTHER, SELFPAY ==
--- NOTE | ~2023-10-10 | XR_ITS ---
EXAMINATION: XR SHOULDER, RIGHT CLINICAL INFORMATION: Right shoulder pain COMPARISON: None available. TECHNIQUE: AP neutral, Grashey, scapular Y, and axillary views of the right shoulder. FINDINGS: The bones are intact. No fracture. Glenohumeral and acromioclavicular alignment is anatomic with normal joint space. No abnormal soft tissue calcifications. XR/XR shoulder RT min 2V IMPRESSION: No bony abnormality.
--- NOTE | ~2023-10-10 | XR_ITS ---
EXAMINATION: XR ELBOW, RIGHT CLINICAL INFORMATION: Right elbow pain COMPARISON: None available. TECHNIQUE: AP, lateral, and oblique views of the right elbow. FINDINGS: There is a small ossific or calcific density noted inferior to the olecranon which could represent a small chip fracture, of unknown chronicity. Small joint effusion. Alignment is anatomic. Joint spaces are maintained. There is mild soft tissue swelling over the olecranon which can be seen with olecranon bursitis. XR/XR elbow RT min 3V IMPRESSION: 1. Small ossific or calcific density noted inferior to the olecranon which could represent a small chip fracture, of unknown chronicity. 2. Small joint effusion. 3. Possible mild olecranon bursitis.
== END 2023-10-10 07:44 | disposition home or self-care (01) ==
LOC: HO.HMGCX 07:43
PROVIDERS: PCP Internal Medicine; Visit Provider Internal Medicine
DX: M25.521 Pain in right elbow (principal); M25.511 Pain in right shoulder
CPT/HCPCS: 73030; 73080

== ENCOUNTER 2023-12-01 15:35 | Outpatient (REF) | payer OTHER, SELFPAY ==
--- NOTE | ~2023-12-01 | MM_ITS ---
EXAMINATION: MM SCREENING DIGITAL BREAST TOMOSYNTHESIS, BILATERAL CLINICAL INFORMATION: Screening. Asymptomatic. The patient is status post bilateral breast reduction. COMPARISON: Mammography: This study is compared with prior exams dating back to 2019. TECHNIQUE: Digital breast tomosynthesis is performed in both the craniocaudal and mediolateral oblique views along with computer-aided detection (CAD). Synthesized 2D images are generated from the tomosynthesis. FINDINGS: There are scattered areas of fibroglandular density (ACR BI-RADS breast composition Category b). There are no significant masses, abnormal calcifications, or other abnormalities. Bilateral post reduction changes are present. MM/MM tomosynthesis screening BI IMPRESSION: No mammographic evidence of malignancy. ASSESSMENT: BI-RADS BI-RADS 2 - Benign Findings RECOMMENDATION: Routine annual mammography screening. 1 year F/U This examination should not preclude the clinical evaluation of a suspicious palpable abnormality. This patient's information was entered into a reminder system with a target due date for their next mammogram.
== END 2023-12-01 15:36 | disposition home or self-care (01) ==
LOC: HO.MAMMO 15:35
PROVIDERS: Visit Provider Internal Medicine
DX: Z12.31 Encounter for screening mammogram for malignant neoplasm of breast (principal)
CPT/HCPCS: 77063; 77067

== ENCOUNTER → 2023-12-01 16:00 | Outpatient (BNV) | payer OTHER, SELFPAY | PROVIDERS: Visit Provider Radiology Diagnostic Radiology | DX: Z12.31 Encounter for screening mammogram for malignant neoplasm of breast (principal) | CPT/HCPCS: 77063; 77067 ==

== ENCOUNTER → 2023-12-10 15:10 | Outpatient (BNVA) | payer OTHER, SELFPAY | PROVIDERS: PCP Internal Medicine | DX: Z13.89 Encounter for screening for other disorder (principal) | CPT/HCPCS: 84450; 84460; 86803; 87389 ==

== ENCOUNTER 2024-01-06 07:47 | Emergency (ER) | payer OTHER, SELFPAY ==
--- NOTE | ~2024-01-06 | CT_ITS ---
EXAMINATION: CT ABDOMEN AND PELVIS WITH CONTRAST CLINICAL INFORMATION: Left lower quadrant abdominal pain COMPARISON: Ultrasound abdomen from 07/11/2022 TECHNIQUE: Multidetector volumetric images were obtained from the superior aspect of the liver through the pubic symphysis following administration 85 mL of Omnipaque 350 intravenous contrast. Sagittal and coronal reformatted images were obtained on the technologist's workstation. Oral contrast: No This CT examination was performed using dose optimization techniques as appropriate, variously including the following: *Automated exposure control *Adjustment of mA and/or kV according to patient size (this includes techniques or standardized protocols for targeted exams where dose is matched to indication/reason for exam; i.e. extremities or head) *Use of iterative reconstruction technique DLP: 440 mGy-cm FINDINGS: LUNG BASES: No pneumothorax. No large pleural effusion. LIVER, GALLBLADDER, AND BILIARY TREE: The liver is normal in size, shape, and attenuation. No focal hepatic lesion or biliary ductal dilatation is present. The gallbladder is unremarkable with no evidence of radiopaque gallstones, gallbladder wall thickening, or obvious pericholecystic inflammatory changes. PANCREAS: Unremarkable. SPLEEN: Unremarkable. ADRENAL GLANDS: Unremarkable. KIDNEYS AND URETERS: Left parapelvic cysts, not requiring follow-up. The kidneys are normal in size, shape, and attenuation. No hydronephrosis, hydroureter, or calculi seen. No perinephric stranding. BLADDER: Unremarkable. GASTROINTESTINAL TRACT: The small and large bowel are unremarkable. The appendix is unremarkable. ABDOMINAL WALL: No significant hernia is appreciated. LYMPH NODES: No enlarged lymph nodes per size criteria. VASCULAR: Abdominal aorta is nonaneurysmal. PELVIC VISCERA: Anteverted uterus. 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 Correlation with symptomatology. OSSEOUS STRUCTURES: Multilevel degenerative changes of the thoracolumbar and lumbosacral spine.Slight sclerosis along the inferior anterior endplate of L5, nonspecific. CT/CT abdomen pelvis w IV con IMPRESSION: 1. No acute process of the abdomen or pelvis identified. 2. 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 Correlation with symptomatology. 3. Left parapelvic cysts, not requiring follow-up.
--- NOTE | ~2024-01-06 | US_ITS ---
EXAMINATION: US PELVIS CLINICAL INFORMATION: Left lower quadrant COMPARISON: CT abdomen pelvis earlier today TECHNIQUE: Ultrasound of the pelvis is performed using both transabdominal and transvaginal transducers along with Doppler. Transvaginal imaging is performed due to inadequate visualization transabdominally. FINDINGS: Uterus: The uterus is anteverted and measures 6.1 x 2.8 x 3.8 cm. The double wall endometrial thickness is 1.5 mm. The uterus is smooth in contour and has normal myometrial echogenicity. No visible fibroid. Adnexa: Only the right ovary is visualized measuring 1.8 x 1.0 x 0.6 cm.. There is normal color flow to the right adnexa. There is no right ovarian torsion. There is no pelvic ascites or fluid collection. On the CT scan earlier today, there was marked reflux seen in a dilated left ovarian vein with pelvic varices. This can certainly be a cause of chronic pelvic pain especially if exacerbated with the upright position and relieved with the supine position. If the patient has these symptoms, consultation with interventional radiology is recommended. US/US pelvic and transvaginal IMPRESSION: Normal-appearing uterus and right ovary. The left ovary is not visualized. See discussion above.
--- NOTE | ~2024-01-06 | US_ITS ---
EXAMINATION: US PELVIS CLINICAL INFORMATION: Left lower quadrant COMPARISON: CT abdomen pelvis earlier today TECHNIQUE: Ultrasound of the pelvis is performed using both transabdominal and transvaginal transducers along with Doppler. Transvaginal imaging is performed due to inadequate visualization transabdominally. FINDINGS: Uterus: The uterus is anteverted and measures 6.1 x 2.8 x 3.8 cm. The double wall endometrial thickness is 1.5 mm. The uterus is smooth in contour and has normal myometrial echogenicity. No visible fibroid. Adnexa: Only the right ovary is visualized measuring 1.8 x 1.0 x 0.6 cm.. There is normal color flow to the right adnexa. There is no right ovarian torsion. There is no pelvic ascites or fluid collection. On the CT scan earlier today, there was marked reflux seen in a dilated left ovarian vein with pelvic varices. This can certainly be a cause of chronic pelvic pain especially if exacerbated with the upright position and relieved with the supine position. If the patient has these symptoms, consultation with interventional radiology is recommended. US/US pelvic ovarian doppler IMPRESSION: Normal-appearing uterus and right ovary. The left ovary is not visualized. See discussion above.
[2024-01-06 07:53] VITALS: BP 126/76; PULSE 69; RESP 16; TEMP 36.8; O2SAT 100; BMI 27.6
--- NOTE | 2024-01-06 08:07 | ED.GENADULT ---
HPI - General Adult General Chief complaint: General Medical Stated complaint: L side abd pain Time Seen by Provider: 01/06/24 07:50 Source: patient Mode of arrival: ambulatory Limitations: no limitations History of Present Illness ED Provider: Darryn WOODALL HPI narrative: This is a 53-year-old female past medical history of asthma, diverticulitis, nonobstructing schatzkis ring, esophagitis, hiatal hernia, hemorrhoids presenting to the emergency department with left lower quadrant pain, diarrhea for the past week. Initially patient thought she had food poisoning after eating fish however pain and diarrhea persisted which prompted her to come in today. Patient reports she has a remote history of diverticulitis however it has not recurred in years, last happened many years ago and was admitted at [facility] for this. Patient has been eating and drinking however eating and drinking also precipitate pain. She denies fevers, chills, nausea, vomiting, headache, vision changes, chest pain, shortness of breath, blood in stool or vomit. Related Data Home Medications ?Medication ?Instructions ?Recorded ?Confirmed melatonin 10 mg capsule 10 mg PO BEDTIME PRN Insomnia 09/17/21 08/29/22 albuterol sulfate 90 mcg/actuation 2 puff inhalation Q6H PRN wheezing 07/09/22 08/29/22 aerosol inhaler hydroxyzine HCl 25 mg tablet 25 mg PO DAILY PRN anxiety 07/09/22 08/29/22 lorazepam 0.5 mg tablet 0.5 mg PO DAILY PRN Anxiety 07/09/22 08/29/22 mecobalamin (vitamin B12) 1,000 1,000 mcg PO DAILY 07/09/22 08/29/22 mcg lozenges riboflavin (vitamin B2) 400 mg 400 mg PO DAILY 07/09/22 08/29/22 tablet magnesium 250 mg tablet 250 mg PO DAILY 12/24/22 Previous Rx's ?Medication ?Instructions ?Recorded hydrocortisone acetate 30 mg 30 mg GA DAILY #12 ea 09/25/22 rectal suppository cyclobenzaprine 10 mg tablet 10 mg PO TID PRN muscle spasm #10 10/11/22 tabs pantoprazole 40 mg tablet,delayed 40 mg PO DAILY #90 tabs 09/12/23 release ketorolac 10 mg tablet 10 mg PO TID PRN pain 5 days #15 01/06/24 tabs Allergies Allergy/AdvReac Type Severity Reaction Status Date / Time hydrocodone [HYDROCODONE] Allergy Unknown HYPOTENSION, Verified 01/06/24 07:55 VOMITING, WEAKNESS oxycodone [From PERCOCET] Allergy Unknown vomiting Verified 01/06/24 07:55 tramadol [TRAMADOL] Allergy Unknown vomiting Verified 01/06/24 07:55 Review of Systems Review of Systems: Yes all other systems are reviewed and are negative PMFSH Past Medical History Attestation statement: The following information was validated with the patient. Source: old records reviewed and nursing notes reviewed Medical History Perforated bowel Asthma Surgical History History of esophagogastroduodenoscopy (EGD) H/O abdominoplasty H/O bilateral breast reduction surgery Hx of colonoscopy Social History Social History Patient Tobacco Use Status: Never used Tobacco Smoked in Last 30 Days: No Use of substances other than those prescribed or required for medical reasons: No Advance Directives: No Do you have a plan to hurt others: No Plan Patient : No Physical Exam ED Vital Signs: Vital Signs - 24 hr 01/06/24 07:53 01/06/24 08:18 01/06/24 10:46 Temperature 98.2 F 98.2 F 98.0 F Pulse Rate 69 74 68 Respiratory Rate 16 16 14 Blood Pressure 126/76 99/65 135/76 Pulse Oximetry 100 97 100 Oxygen Delivery Method Room Air Room Air Room Air 01/06/24 12:21 Temperature 98.5 F Pulse Rate 64 Respiratory Rate 16 Blood Pressure 119/69 Pulse Oximetry 100 Oxygen Delivery Method Room Air BMI result Body Mass Index 27.6 vss Appearance: Alert.? Oriented X3.? No acute distress.? Head: Normocephalic, atraumatic, no step-offs or deformities Eyes: Pupils equal, round and reactive to light.? CVS: Normal heart rate and rhythm.? Pulses normal.? Respiratory: No respiratory distress.? Breath sounds normal.? Abdomen: Soft and + LLQ tenderness on exam .? Skin: Skin warm and dry.? Normal skin color.? Normal skin turgor.? Extremities: No lower extremity edema.? No calf ttp. 5/5 strength to bilateral upper and lower extremities Back: No midline tenderness, no C-spine tenderness, full range of motion, no CVA tenderness bilaterally Neuro: Oriented X 3.? No motor deficit.? No sensory deficit. CN 2-12 intact Course Reevaluation(s) Reevaluation #1: CBC with baseline leukopenia. Chemistry no acute findings requiring intervention. Beta hCG 5. UA without infection. Time: 09:30 Reevaluation #2: CT scan w/ no acute process of abdomen or pelvis/ Left periurteral veins prominent ? pelvic congestion syndrome. Left parapelvic cysts will obtain US pelvic transvaginal due to location of pain Time: 11:12 Reevaluation #3: Discussed this case with OBGYN Dr. Carmona who states ? Those findings are usually consistent with chronic pelvic pelvic pain worse when standing up certainly not in a patient presenting with acute pain , nausea and diarrhea . Will discharge patient home with Toradol, OBGYN follow-up. Educated patient on diagnosis and treatment plan, answered all question, patient verbalizes understanding. At this time patient will be discharged home, advised to return with new or worsening symptoms. Educated on worrisome signs and symptoms and when to return. At this time I feel comfortable discharge home. Time: 14:40 Medications Administered Discontinued Medications Generic Name Dose Route Start Last Admin Trade Name Freq PRN Reason Stop Dose Admin Iohexol 100 ml 01/06/24 09:36 01/06/24 09:37 Iohexol 350 Mg/Ml 100 Ml Infus..Btl IV 01/06/24 09:37 85 ml ONCE ONE Administration Ketorolac Tromethamine 30 mg 01/06/24 13:33 01/06/24 13:41 Ketorolac Tromethamine 15 Mg/Ml Vial IVPUSH 01/06/24 13:34 30 mg ONCE ONE Administration Medical Decision Making Medical Decision Making [facility] Narrative: [id number] yo f presents w/ LLQ pain x 1 week hx of diverticulitis PE- LLQ tenderness on exam Hx and pe concerning for diverticulitis vs diverticulosis vs viral illness. Unlikely ectopic, torsion, acute abdomen, pancreatitis, appendicitis, cholecystitis, obstruction. Plan- labs, imaging, po trial Differential Diagnosis Differential Diagnoses: The differential diagnosis associated with the presentation includes Hx and pe concerning for diverticulitis vs diverticulosis vs viral illness. Unlikely ectopic, torsion, acute abdomen, pancreatitis, appendicitis, cholecystitis, obstruction. Admission/Observation Consideration of admission/observation: Escalation of care including admission/observation considered possible Lab Data MDM Lab Attestation statement: I reviewed the patient's lab results. 01/06/24 08:26 01/06/24 08:26 Labs: Lab Results 01/06/24 01/06/24 Range/Units 08:26 08:32 WBC 4.3 L (4.8-10.8) X10*3/uL RBC 4.78 (4.20-5.50) X10*6/uL Hgb 14.1 (12.0-16.0) g/dl Hct 41.8 (37.0-47.0) % MCV 87.4 (80.0-98.0) fL MCH 29.5 (27.0-33.0) pg MCHC 33.7 (31.0-35.0) g/dl RDW 13.2 (11.0-16.0) % Plt Count 289 (160-400) X10*3/uL MPV 8.9 L (9.4-12.3) fL Immature Gran % (Auto) 0.2 (0.0-0.4) % Neut % (Auto) 48.5 (45-73) % Lymph % (Auto) 42.8 H (20-40) % [place] % (Auto) 7.1 (2-11) % Eos % (Auto) 1.4 (0-4) % Baso % (Auto) 0.0 (0-2) % Lymph # (Auto) 1.8 (1.2-4.9) X10*3/uL [place] # (Auto) 0.3 (0.1-1.2) X10*3/uL Eos # (Auto) 0.1 (0.0-0.4) X10*3/uL Baso # (Auto) 0.0 (0.0-0.2) X10*3/uL Abs Immat Gran (auto) 0.01 (0.00-0.03) X10*3/uL Absolute Neuts (auto) 2.1 (2.0-8.3) x10*3/uL Absolute Nucleated RBC 0.000 (0.0-0.012) X10*3/uL Nucleated RBC % (auto) 0.0 (0.0-0.2) /100WBC Sodium 141 (135-145) mmol/L Potassium 3.5 (3.3-5.1) mmol/L Chloride 107 (96-108) mmol/L Carbon Dioxide 26 (22-29) mmol/L Anion Gap 12 (12-20) BUN 15 (9-16) mg/dL Creatinine 0.79 (0.5-1.4) mg/dL Estim Creat Clear Calc 70.9 Estimated GFR > 60 Random Glucose 81 (60-115) mg/dL Calcium 9.5 (8.4-10.2) mg/dL Magnesium 1.9 (1.6-2.6) mg/dL Total Bilirubin 0.4 (0.0-1.0) mg/dL AST 22 (5-31) U/L ALT 25 (0-31) U/L Alkaline Phosphatase 130 H (39-117) U/L Total Protein 7.4 (6.5-8.0) g/dL Albumin 4.3 (3.5-5.0) g/dL Lipase 32 (8-78) U/L Beta HCG, Quant 5 mIU/mL Urine Color Yellow Urine Appearance Clear Urine pH 5.5 (5.0-9.0) Ur Specific [place] 1.025 (1.005-1.025) Urine Protein Negative (Neg-Trace) mg/dL Urine Glucose (UA) Negative (Negative) mg/dL Urine Ketones Negative (Negative) mg/dL Urine Blood Negative (Negative) Urine Nitrite Negative (Negative) Ur Leukocyte Esterase Trace H (Negative) Urine RBC 0-2 (0-2) /HPF Urine WBC 0-5 (0-5) /HPF Ur Squamous Epith Cells 0-2 (0-2) /HPF Urine Bacteria None Seen (None Seen) Hyaline Casts 0-2 (0-2) /LPF Independent Interpretation I performed an independent interpretation of an: Ultrasound and CT Scan (CT/CT abdomen pelvis w IV con IMPRESSION: 1. No acute process of the abdomen or pelvis identified. 2. 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 Correlation with symptomatology. 3. Left parapelvic cysts, not requiring follow-up.) Radiology Impression Discussion of test interpretation with radiology: I have reviewed the radiologist's reading. External Record Review External record reviewed: Office record, Outpatient record, Prior outpatient labs, Prior outpatient radiology and Outside ED record Chronic Conditions Patient?s care impacted by: Other (asthma, diverticulitis, nonobstructing schatzkis ring, esophagitis, hiatal hernia, hemorrhoids ) Critical Care Time Critical Care Time Critical Care Time: Yes Total Critical Care Time: 45 Attestation: I attest to this time spent taking care of the patient, obtaining history, physical, reviewing labs, imaging, speaking to my attending, specialist or hospitalist. Discharge Plan Discharge Clinical Impression: Abdominal pain, LLQ, Pelvic congestion syndrome Patient Disposition: Home, Self-Care Instructions: Abdominal Pain (ED) Additional Instructions: Take your medications as prescribed. If you were prescribed antibiotics today, it is important that you take your medication to their entirety, do not skip any doses, do not finish them early. Follow-up with your primary care provider this week. Return to the emergency department with new or worsening symptoms. Such as fevers, chills, chest pain, shortness of breath, nausea, vomiting, dizziness, headache, vision changes, lethargy In case of emergency call 911 Toradol has been sent to your pharmacy, you tolerated this well in the department. Please take this as prescribed do not take this with ibuprofen, or other NSAIDs, do not mix this with alcohol. Side effects of this medication including increased risk for bleeding and possible kidney injury. CT/CT abdomen pelvis w IV con IMPRESSION: 1. No acute process of the abdomen or pelvis identified. 2. 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 Correlation with symptomatology. 3. Left parapelvic cysts, not requiring follow-up. Prescriptions: New ketorolac 10 mg tablet 10 mg PO TID PRN (Reason: pain) 5 Days Qty: 15 0RF No Action hydrocortisone acetate 30 mg suppository 30 mg GA DAILY Qty: 12 2RF pantoprazole 40 mg tablet,delayed release (DR/EC) 40 mg PO DAILY Qty: 90 2RF melatonin 10 mg capsule 10 mg PO BEDTIME PRN (Reason: Insomnia) cyclobenzaprine 10 mg tablet 10 mg PO TID PRN (Reason: muscle spasm) Qty: 10 0RF riboflavin (vitamin B2) 400 mg tablet 400 mg PO DAILY albuterol sulfate 90 mcg/actuation HFA aerosol inhaler 2 puff inhalation Q6H PRN (Reason: wheezing) hydroxyzine HCl 25 mg tablet 25 mg PO DAILY PRN (Reason: anxiety) mecobalamin (vitamin B12) 1,000 mcg lozenge 1,000 mcg PO DAILY Rx Instructions: allow to dissolve in mouth OR may chew lightly before swallowing lorazepam 0.5 mg tablet 0.5 mg PO DAILY PRN (Reason: Anxiety) magnesium 250 mg tablet 250 mg PO DAILY Referrals: Deonna Ruff MD [Primary Care Provider] - 2 days Print Language: Mauritanian
[2024-01-06 08:18] VITALS: BP 99/65; PULSE 74; RESP 16; TEMP 36.8; O2SAT 97
[2024-01-06 08:29] LABS: MANUAL DIFF FLAG NO
[2024-01-06 08:33] LABS: Eosinophils Absolute Auto 0.1 X10*3/uL (0.0-0.4); Eosinophils Percent Auto 1.4 % (0-4); Hematocrit 41.8 % (37.0-47.0); Hemoglobin 14.1 g/dl (12.0-16.0); Imm Gran Abs Auto 0.01 X10*3/uL (0.00-0.03); Imm Gran Pct Auto 0.2 % (0.0-0.4); Lymphocytes Absolute Auto 1.8 X10*3/uL (1.2-4.9); Lymphocytes Percent Auto 42.8 % (20-40); Mean Corpuscular HGB Conc 33.7 g/dl (31.0-35.0); Mean Corpuscular Hemoglobin 29.5 pg (27.0-33.0); Mean Corpuscular Volume 87.4 fL (80.0-98.0); Mean Platelet Volume 8.9 fL (9.4-12.3); Monocytes Absolute Auto 0.3 X10*3/uL (0.1-1.2); Monocytes Percent Auto 7.1 % (2-11); Neutrophils Absolute Auto 2.1 x10*3/uL (2.0-8.3); Neutrophils Percent Auto 48.5 % (45-73); Platelet Count 289 X10*3/uL (160-400); Red Blood Count 4.78 X10*6/uL (4.20-5.50); Red Cell Distribution Width 13.2 % (11.0-16.0); White Blood Count 4.3 X10*3/uL (4.8-10.8)
[2024-01-06 08:40] LABS: Appearance Urine Clear; Color Urine Yellow; Glucose Urine UA Negative (Negative); Leukocyte Esterase Urine Trace (Negative); Nitrite Urine Negative (Negative); PH 5.5 (5.0-9.0); Specific Gravity - Urine 1.025 (1.005-1.025); UMIC TRIGGER UACC YES; Urine Blood Negative (Negative); Urine Ketones Negative (Negative); Urine Protein Negative (Neg-Trace)
[2024-01-06 08:43] LABS: Bacteria Urine None Seen (None Seen); Hyaline Casts Urine 0-2 /LPF (0-2); RBC Urine 0-2 /HPF (0-2); Squamous Epithelial Cell Urine 0-2 /HPF (0-2); WBC Urine 0-5 /HPF (0-5)
[2024-01-06 09:01] LABS: Alanine Aminotransferase 25 U/L (0-31); Albumin Level 4.3 g/dL (3.5-5.0); Alkaline Phosphatase 130 U/L (39-117); Anion Gap 12 (12-20); Aspartate Amino Transferase 22 U/L (5-31); Bilirubin Total 0.4 mg/dL (0.0-1.0); Blood Urea Nitrogen 15 mg/dL (9-16); Calcium 9.5 mg/dL (8.4-10.2); Carbon Dioxide 26 mmol/L (22-29); Chloride 107 mmol/L (96-108); Creatinine Clr Calc Pharmacy 70.9; Estimated Glomerular Filt Rate > 60; Glucose Random 81 mg/dL (60-115); Lipase 32 U/L (8-78); Magnesium 1.9 mg/dL (1.6-2.6); Potassium 3.5 mmol/L (3.3-5.1); Sodium 141 mmol/L (135-145); Total Protein 7.4 g/dL (6.5-8.0)
[2024-01-06 09:03] LABS: HCG Quantitative 5 mIU/mL
[2024-01-06] MEDS: iohexoL 350 MG/ML 100 ML INFUS..BTL IV (09:37)
[2024-01-06 10:46] VITALS: BP 135/76; PULSE 68; RESP 14; TEMP 36.7; O2SAT 100
[2024-01-06 12:21] VITALS: BP 119/69; PULSE 64; RESP 16; TEMP 36.9; O2SAT 100
[2024-01-06] MEDS: Ketorolac Tromethamine 15 MG/ML VIAL 30 MG IVPUSH (13:41)
[2024-01-06 15:02] VITALS: BP 131/66; PULSE 72; RESP 16; TEMP 36.6; O2SAT 99
== END 2024-01-06 15:03 | disposition home or self-care (01) ==
PROVIDERS: Physician Assistant; Emergency Provider Emergency Medicine Emergency Medical Services; PCP Internal Medicine
DX: R10.32 Left lower quadrant pain (principal); N94.89 Other specified conditions associated with female genital organs and menstrual cycle
CPT/HCPCS: 36415; 74177; 76830; 76856; 80053; 81001; 83690; 83735; 84702; 85025; 93975; 96374; 99284; J1885; Q9967

== ENCOUNTER 2024-01-23 15:40 | Outpatient (AMB) | payer OTHER, SELFPAY ==
--- NOTE | 2024-01-23 15:43 | A.OFFVIS_ITS ---
Vital Signs 01/23/24 15:46 Height 5 ft Weight 138 lb 14.259 oz BMI 27.1 BP 94/56 L Blood Pressure Location Lt brachial Position Sitting Pulse 79 Intake Visit Reasons: 1 year follow up Intake Note: Alva presents in the office as a 1 year follow up. CC: She states that she was calling the office because she was having a pain in the lower abdomen and diarrhea for 10 days - she got anxious that she was having a diverticulitis flare up. She went to the ED and they did an US and CT and ruled out the Diverticulitis - she was told she had an enlarged pelvic vein and pelvic congestion. After diarrhea she got constipation and then had pains of burning in the epigastric pains and lower right abdomen. In the past it was mentioned of possible IBS but has not heard anything since. [employer] P[employer]ils [employer] Required: No Allergies hydrocodone [HYDROCODONE] Allergy (Unknown, Verified 01/24/24 13:47) HYPOTENSION, VOMITING, WEAKNESS oxycodone [From PERCOCET] Allergy (Unknown, Verified 01/24/24 13:47) vomiting tramadol [TRAMADOL] Allergy (Unknown, Verified 01/24/24 13:47) vomiting HPI Comments Details: 52 y.o F with PMH of who is here to for follow up: 07/09/22: RUQ pain last month that started at work which progressively got worse over a few hours. Lasted for 2 days. Associated with nausea, no radiation. Was able to eat with this. No fevers but did have chills. Never had this pain before. Has gallbladder in situ. Takes tylenol and naproxen 1-3 times a month. Has been taking pantoprazole 40 since this episode which she thinks has helped. Of note, sister had cholecystectomy in her 40s. She also wishes to discuss colon cancer screening. Her last colonoscopy was many years ago when she had rectal bleeding was told she has hemorrhoids. Constipated at baseline and does not changes in bowel habits but does frequently see fresh blood in toilet bowl after straining for a BM. Occurs almost every month. Last episode was last week, can also sometimes feel hemorrhoids protruding downwards. No fam hx of colon cancer or advanced polyps. 08/29/22: EGD/[place] Grade A esophagitis Nonobstructing Schatzki's ring Hiatal hernia Gastritis (biopsy) Normal duodenum (biopsy) Normal colon and terminal ileum mucosa Diverticulosis Bleeding internal hemorrhoids Path: A. Duodenum, biopsy: Chronic inactive duodenitis. B. Stomach, random, biopsy: Oxyntic mucosa with mild chronic inactive inflammation; no Helicobacter organisms seen. 09/16/22: Currently no acute gastrointestinal sx. Has noticed some food triggers for heartburn and tries to avoid them. Otherwise no RUQ pain or nausea. On PPI BID since the scope. Has also been referred to surg for bleeding hemorrhoids, however quite hesitant re the surgery itself. 12/25/22: Has been seen by Dr Baez for ? hemorrhoidectomy and pt would like to hold off at this point. Was not able to get topical lidocaine/hydrocortisone for [place] application due to insurance cost however was able to get anusol suppositories and sx of rectal discomfort, fullness and bleeding resolved within 7-10 days. Currently, no gastrointestinal complaints. She tried to come off the PPI but had recurrence of heartburn and wonders if she needs it lifelong. 01/23/24: Here for ER follow up. Reports an episode of diarrhea x 10 days that started around 2-3 weeks ago. Was seen in ER for this as well cameron when it lasted > [address] scan neg for diverticulitis. Once the diarrhea resolved she developed constipation assoc with RUQ and RLQ pain. Notices that symptoms are more prominent after she has red meat. Does not give any history of tick bite. CT Abd/pel 12/2023: 1. No acute process of the abdomen or pelvis identified. 2. 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 Correlation with symptomatology. 3. Left parapelvic cysts, not requiring follow-up. Reflux well controlled. Continues on protonix. [facility] Medical History Perforated bowel Asthma Surgical History History of esophagogastroduodenoscopy (EGD) H/O abdominoplasty H/O bilateral breast reduction surgery Hx of colonoscopy Social History Patient Tobacco Use Status: Never used Tobacco Review of Systems Const All systems reviewed & are unremarkable except as noted in HPI and below Physical Exam Vital Signs: Last Vital Signs Pulse 79 01/23/24 15:46 BP 94/56 L 01/23/24 15:46 BMI result Body Mass Index 27.1 No apparent distress Nonicteric Abdomen soft, nondistended Alert and oriented x3, normal gait Assessment & Plan Assessment & Plan (1) Right upper quadrant pain: Code(s): R10.11 - Right upper quadrant pain Category: Medical (2) Diarrhea: Code(s): R19.7 - Diarrhea, unspecified Category: Medical (3) Change in bowel habit: Code(s): R19.4 - Change in bowel habit Category: Medical Plan Reassured the patient that likely had acute infectious event given it was self- limiting after few days. However, since reports intermittent changes to her bowel habits, will investigate to rule out symptomatic cholelithiasis, celiac, Alphagal especially correlation with red meat intake. Plan: -labs ordered as below -ultrasound abdomen -will call her back for follow-up if any actionable findings on above, otherwise we will see her in 6 months Orders: Orders US abdomen complete 01/30/24 R10.11 - Right upper quadrant pain Liver Panel 01/27/24 R10.11 - Right upper quadrant pain Immunoglobulin A 01/27/24 R19.7 - Diarrhea, unspecified Other Ref Test - Misc 01/27/24 R19.7 - Diarrhea, unspecified Immunoglobulin G 01/27/24 R19.7 - Diarrhea, unspecified Transglutaminase IgA 01/27/24 R19.7 - Diarrhea, unspecified TSH reflex Free T4 01/27/24 R19.7 - Diarrhea, unspecified Coding Level of Care Code Est Pt Level 4 (87639) Diagnoses Right upper quadrant pain R10.11 Diarrhea R19.7 Change in bowel habit R19.4
[2024-01-23 15:46] VITALS: BP 94/56; PULSE 79; BMI 27.1
== END 2024-01-23 16:18 | disposition home or self-care (01) ==
PROVIDERS: PCP Internal Medicine; Visit Provider Internal Medicine
DX: R10.11 Right upper quadrant pain (principal); R19.7 Diarrhea, unspecified; R19.4 Change in bowel habit
CPT/HCPCS: 99214

== ENCOUNTER → 2024-01-23 15:40 | Outpatient (BNVA) | payer OTHER, SELFPAY | PROVIDERS: PCP Internal Medicine; Visit Provider Internal Medicine ==

== ENCOUNTER 2024-01-24 12:12 | Outpatient (AMB) | payer OTHER, SELFPAY ==
[2024-01-24 13:46] VITALS: BP 110/62; PULSE 77; TEMP 36.6; O2SAT 98; BMI 26.9
--- NOTE | 2024-01-24 13:46 | AM.OFFWIN_ITS ---
Intake Vital Signs 01/24/24 13:46 Height 5 ft Weight 138 lb BMI 26.9 BP 110/62 Blood Pressure Location Rt brachial Position Sitting Pulse 77 Pulse Source Pulse Oximeter Temp 97.9 F Temp Source Oral Pulse Oximetry (%) 98 Intake Visit Reasons: EP Check on [facility] Intake Note: pt is here for stitch removal in ear Patient Tobacco Use Status: Never used Tobacco Allergies hydrocodone [HYDROCODONE] Allergy (Unknown, Verified 01/24/24 13:47) HYPOTENSION, VOMITING, WEAKNESS oxycodone [From PERCOCET] Allergy (Unknown, Verified 01/24/24 13:47) vomiting tramadol [TRAMADOL] Allergy (Unknown, Verified 01/24/24 13:47) vomiting Do you need a note to return to daycare/school/sports/work: Yes HPI EP Check on [facility] HPI Details Patient is a 53-year-old female who comes to the walk-in clinic complaining of pain just above her right earlobe. She mentioned the pain to her daughter who found a retained suture left over from a facial cosmetic surgery 21 days ago. She reports that she had had the sutures removed from a nurse after the procedure, and then had her 2 week follow-up with a surgeon who also d id not find any issues at the time. She also reports pain to an area on her left side of her scalp where she had a suture placed in the hairline. She denies right inner ear pain, hearing changes, discharge from the area, headache, dizziness, fever or chills, nausea vomiting or diarrhea, myalgias or malaise, or other significant associated symptoms. Reviewed past medical history with the patient. [facility] Medical History Perforated bowel Asthma Surgical History History of esophagogastroduodenoscopy (EGD) H/O abdominoplasty H/O bilateral breast reduction surgery Hx of colonoscopy Social History Patient Tobacco Use Status: Never used Tobacco Review of Systems Const All systems reviewed & are unremarkable except as noted in HPI and below Physical Exam Vital Signs: Last Vital Signs Temp 97.9 F 01/24/24 13:46 Pulse 77 01/24/24 13:46 BP 110/62 01/24/24 13:46 Pulse Ox 98 01/24/24 13:46 BMI result Body Mass Index 26.9 Const General: cooperative, healthy appearing, comfortable, no acute distress, alert, awake, Physically active and well groomed; No anxious, diaphoretic, ill appearing, intoxicated appearing, poor hygiene or tired appearing Nutritional Appearance: average body habitus Limitations: no limitations HEENT Other: Very small suture found just above the right ear lobe, with tenderness to palpation, and mild erythema, but no obvious edema or warmth. No discharge visible. No obvious fluctuance or induration. No streaking. The left parietal area where patient points to a tender spot, there is a proximally 2 mm surgical scar with 1 pustule next to it. No edema erythema warmth, no induration or fluctuance. Head: Yes normocephalic and Yes scalp tenderness (Just superior to the right earlobe, and left parietal scalp) Ears: TM normal on the right Neck Neck: Yes no lymphadenopathy Resp Effort & Inspection: normal respiratory effort Psych Appearance: grossly normal Mental Status: mental status grossly normal Speech and movement: Normal speech and movement present Affect: normal affect Attitude: cooperative Thought process: Normal thought process present Insight: Good insight present (Psych) Judgement: Good judgement present (Psych) Assessment & Plan Assessment & Plan (1) Retained suture: Code(s): T81.89XA - Other complications of procedures, not elsewhere classified, initial encounter; Z18.9 - Retained foreign body fragments, unspecified material Qualifiers: Encounter type: initial encounter Qualified Code(s): T81.89XA - Other complications of procedures, not elsewhere classified, initial encounter; Z18.9 - Retained foreign body fragments, unspecified material Plan: Patient is a 53-year-old female comes to the walk-in clinic complaining of pain just above her right earlobe. She mentioned the pain to her daughter who found a retained suture left over from a facial cosmetic surgery 21 days ago. I removed the suture and was able to express a drop of pustulant material from one of the suture puncture luciano, which was swabbed today for culture and susceptibility testing. Pending results of that, I started her on empiric antibiotic treatment with Keflex. She also reported soreness to an area on her left side of her scalp where she had a suture placed in the hairline. There was a few pustules around the surgical scar, which hopefully the antibiotic will also cover. She knows to follow up if symptoms persist or worsen in the meantime. Orders: Orders Routine Culture w Gram Stain 01/24/24 L03.90 - Cellulitis, unspecified Medications: New cephalexin 500 mg PO QID 40 caps 0RF 10 days Coding Level of Care Code Est Pt Level 4 (23543) Diagnoses Retained suture, initial encounter T81.89XA; Z18.9 Encounter type: initial encounter
== END 2024-01-24 14:53 | disposition home or self-care (01) ==
PROVIDERS: PCP Internal Medicine; Visit Provider Physician Assistant Medical
DX: T81.89XA Other complications of procedures, not elsewhere classified, initial encounter (principal); Z18.9 Retained foreign body fragments, unspecified material
CPT/HCPCS: 99051; 99214

== ENCOUNTER 2024-01-24 15:53 | Outpatient (REF) | payer OTHER, SELFPAY | END 2024-01-24 15:54 | disposition home or self-care (01) | LOC: HO.LNP 15:53 | PROVIDERS: Visit Provider Physician Assistant Medical | DX: L03.90 Cellulitis, unspecified (principal) | CPT/HCPCS: 87070; 87147; 87205 ==

== ENCOUNTER 2024-01-27 05:57 | Outpatient (REF) | payer OTHER, SELFPAY ==
[2024-01-27 10:24] LABS: MANUAL DIFF FLAG NO
[2024-01-27 10:39] LABS: Eosinophils Absolute Auto 0.1 X10*3/uL (0.0-0.4); Eosinophils Percent Auto 1.8 % (0-4); Hematocrit 41.8 % (37.0-47.0); Hemoglobin 13.9 g/dl (12.0-16.0); Lymphocytes Absolute Auto 2.1 X10*3/uL (1.2-4.9); Lymphocytes Percent Auto 53.7 % (20-40); Mean Corpuscular HGB Conc 33.3 g/dl (31.0-35.0); Mean Corpuscular Hemoglobin 29.4 pg (27.0-33.0); Mean Corpuscular Volume 88.6 fL (80.0-98.0); Mean Platelet Volume 9.9 fL (9.4-12.3); Monocytes Absolute Auto 0.3 X10*3/uL (0.1-1.2); Monocytes Percent Auto 6.9 % (2-11); Neutrophils Absolute Auto 1.5 x10*3/uL (2.0-8.3); Neutrophils Percent Auto 37.6 % (45-73); Platelet Count 304 X10*3/uL (160-400); Red Blood Count 4.72 X10*6/uL (4.20-5.50); Red Cell Distribution Width 13.2 % (11.0-16.0); White Blood Count 3.9 X10*3/uL (4.8-10.8)
[2024-01-27 10:58] LABS: Alanine Aminotransferase 27 U/L (0-31); Albumin Level 4.4 g/dL (3.5-5.0); Alkaline Phosphatase 126 U/L (39-117); Anion Gap 11 (12-20); Aspartate Amino Transferase 23 U/L (5-31); Bilirubin Direct 0.2 mg/dL (0.0-0.5); Bilirubin Total 0.6 mg/dL (0.0-1.0); Blood Urea Nitrogen 15 mg/dL (9-16); C Reactive Protein 0.14 mg/dL (< or = 0.50); Calcium 9.3 mg/dL (8.4-10.2); Carbon Dioxide 26 mmol/L (22-29); Chloride 105 mmol/L (96-108); Cholesterol 235 mg/dL (<200); Estimated Glomerular Filt Rate > 60; Glucose Random 79 mg/dL (60-115); HDL Cholesterol 70 mg/dL (>40); LDL Cholesterol Calculated 137 mg/dL (<100); Potassium 3.6 mmol/L (3.3-5.1); Sodium 138 mmol/L (135-145); Total Protein 7.7 g/dL (6.5-8.0); Triglycerides 143 mg/dL (<150)
[2024-01-27 11:03] LABS: TSH reflex Free T4 1.52 uIU/mL (0.32-4.0)
[2024-01-27 11:07] LABS: TSH reflex Free T4 1.62 uIU/mL (0.32-4.0)
[2024-01-27 11:28] LABS: Erythrocyte Sedimentation Rate 9 MM/HR (0-20)
[2024-01-28 08:52] LABS: Immunoglobulin A 325 mg/dL (47-310); Immunoglobulin G 1140 mg/dL (600-1640)
[2024-01-28 20:13] LABS: Transglutaminase IgA <1.0 U/mL
[2024-01-29 09:23] LABS: Cyclic Citrullinated Peptide <16 UNITS
== END 2024-01-27 05:58 | disposition home or self-care (01) ==
LOC: HO.HMGCLDS 05:57
PROVIDERS: PCP Internal Medicine; Visit Provider Internal Medicine
DX: Z00.00 Encounter for general adult medical examination without abnormal findings (principal); R10.11 Right upper quadrant pain; R19.7 Diarrhea, unspecified; Z91.09 Other allergy status, other than to drugs and biological substances
CPT/HCPCS: 36415; 80053; 80061; 82248; 82784; 84443; 85025; 85652; 86003; 86008; 86140; 86200; 86364

== ENCOUNTER 2024-01-29 05:35 | Outpatient (REF) | payer OTHER, SELFPAY ==
[2024-01-29 11:29] LABS: Adenovirus F 40/41 Not Detected (Not Detect.); Astrovirus Not Detected (Not Detect.); Campylobacter Not Detected (Not Detect.); Cryptosporidium Not Detected (Not Detect.); Cyclospora cayetanensis Not Detected (Not Detect.); E. coli EAEC Not Detected (Not Detect.); E. coli EPEC Detected (Not Detect.); E. coli ETEC Not Detected (Not Detect.); E. coli STEC Not Detected (Not Detect.); Entamoeba histolytica Not Detected (Not Detect.); Giardia lamblia Not Detected (Not Detect.); Norovirus GI/GII Not Detected (Not Detect.); Plesiomonas shigelloides Not Detected (Not Detect.); Rotavirus A Not Detected (Not Detect.); Salmonella Not Detected (Not Detect.); Sapovirus Not Detected (Not Detect.); Shigella sp./EIEC Not Detected (Not Detect.); Vibrio Not Detected (Not Detect.); Vibrio Cholerae Not Detected (Not Detect.); Yersinia enterocolitica Not Detected (Not Detect.)
== END 2024-01-29 05:36 | disposition home or self-care (01) ==
LOC: HO.HMGCLNP 05:35
PROVIDERS: PCP Internal Medicine; Visit Provider Internal Medicine Gastroenterology
DX: R19.7 Diarrhea, unspecified (principal)
CPT/HCPCS: 87493; 87507

== ENCOUNTER 2024-01-30 06:57 | Outpatient (REF) | payer OTHER, SELFPAY ==
--- NOTE | ~2024-01-30 | US_ITS ---
EXAMINATION: US ABDOMEN COMPLETE CLINICAL INFORMATION: Right upper quadrant pain. COMPARISON: CT abdomen and pelvis 01/06/2024. Ultrasound abdomen complete 07/11/2022. Ultrasound abdomen limited 04/07/2019. TECHNIQUE: Real-time imaging of the abdominal viscera. Limited visualization due to bowel gas. FINDINGS: PANCREAS: Limited visualization of pancreatic tail and head. Imaged portion of pancreatic body is unremarkable. ABDOMINAL AORTA: Limited visualization of the abdominal aorta. Imaged portions of the abdominal aorta are within normal limits in caliber. INFERIOR VENA CAVA: Visualized portions are normal. LIVER: Mildly heterogeneous hepatic echotexture. Substantially limited visualization. Smooth hepatic contour. GALLBLADDER: No gallstones. No gallbladder wall thickening. COMMON BILE DUCT: Normal in caliber measuring 0.34 cm in diameter. RIGHT KIDNEY: No hydronephrosis. No renal calculi. Limited visualization. The kidney measures 9.5 cm in maximum dimension. LEFT KIDNEY: A 0.4 cm left lower pole renal calculus. A 1.2 cm left renal parapelvic cyst. There is no specific indication for additional imaging at this time. Limited visualization. No hydronephrosis. The kidney measures 10.0 cm in maximum dimension. SPLEEN: Normal. The spleen measures 8.4 cm in maximum dimension. FREE FLUID: None. US/US abdomen complete IMPRESSION: 1. A 4 mm left renal lower pole nonobstructive calculus. No evidence of hydronephrosis. 2. Mildly heterogeneous hepatic echotexture. Substantially limited visualization. Smooth hepatic contour. Electronically signed by: Emily Anton MD 03/01/2024 11:14 AM EDT
== END 2024-01-30 06:58 | disposition home or self-care (01) ==
LOC: HO.HMGCX 06:57
PROVIDERS: PCP Internal Medicine; Visit Provider Internal Medicine
DX: R10.11 Right upper quadrant pain (principal)
CPT/HCPCS: 76700

== ENCOUNTER 2024-07-23 08:01 | Outpatient (REF) | payer OTHER, SELFPAY ==
--- OUTSIDE RECORDS SUMMARY | 2024-07-23 13:58 | XMS_ITS | Clinical Summary ---
Author Organization [facility] it Address [address] [place] [address] Care Team Providers Care Pleat Taper Name Role Phone Barry Polo MD Primary Care [facility] paul Surgical History Surgery Date Site/Laterality Comments [...] age to complete this topic Care Teams Pleat Taper Relationship Specialty Start Date End Date Barry Polo MD [address] [place] [address] [facility] [place] [address] PCP - General Internal Medicine 08/26/18
[2024-07-23 15:59] LABS: Influenza A PCR NEGATIVE (Negative); Influenza B PCR NEGATIVE (Negative); Resp Syncy Virus RNA Qual PCR NEGATIVE (Negative); SARS COV2 PCR INHOUSE NEGATIVE (Negative)
== END 2024-07-23 08:02 | disposition home or self-care (01) ==
LOC: HO.HMGCLNP 08:01
PROVIDERS: PCP Internal Medicine; Visit Provider Physician Assistant Medical
DX: J06.9 Acute upper respiratory infection, unspecified (principal)
CPT/HCPCS: 0241U

== ENCOUNTER → 2024-07-23 08:01 | Outpatient (AMB) ==
--- OUTSIDE RECORDS SUMMARY | 2024-07-23 08:05 | XMS_ITS | Clinical Summary ---
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 Name Role Phone Barry Polo MD Primary Care [facility] paul Surgical History Surgery Date Site/Laterality Comments OTHER SURGICAL HISTORY PROCEDURE: BREAST CYST,FLUID FOR CYTOLOGY EXAM TUBAL LIGATION PROCEDURE: HISTORICAL TUBAL LIGATION BELT ABDOMINOPLASTY PROCEDURE: HISTORICAL TUMMY TUCK Medical History Medical History Date Comments Irritable bowel syndrome DX:Irri table bowel syndrome Asthma DX:Asthma Perforation of sigmoid colon (CMS/HCC) DX:Perforation of sigmoid colon (HCC); COMMENT: microperforation Secondary to colonoscopy Family History Medical History Relation Name Comments Other: Other Father Stroke Father Diabetes Mother Other: Other Mother Relation Name Status Comments Father Mother Social History Tobacco Use Types Packs/Day Years Used Date Smoking Tobacco: Never Smokeless Tobacco: Never Alcohol Use Standard Drinks/Week Comments No 0 (1 standard drink = 0.6 oz pur e alcohol) Sex and Gender Information Value Date Recorded Sex Assigned at Not on file Gender Identity Not on file Sexual Orientation Not on file Obstetrics History Plan of Treatment Health Maintenance Due Date Last Done Comments Breast Cancer Screening 1969 DTaP,Tdap,and Td Vaccines (1 - Tdap) 1988 Hepatitis B Vaccines (1 of 3 - 19+ 3-dose series) 1988 Cervical Cancer Screening: P ap Smear 1990 Zoster Vaccines (1 of 2) 2019 COVID-19 Vaccine ( - 2023-2 5 season) 2024 Influenza Vaccine (#1) 2024 HIB Vaccines Aged Out No longer eligi ble based on patient's age to complete this topic HPV Vaccines Aged Out No longer eligi ble based on patient's age to complete this topic Hepatitis A Vaccines Aged Out No long er eligible based on patient's age to complete this topic IPV Vaccines Aged Out No longer eligi ble based on patient's age to complete this topic MMR Vaccines Aged Out No longer eligi ble based on patient's age to complete this topic Meningococcal ACWY Vaccine Aged Out N o longer eligible based on patient's age to complete this topic Pneumococcal Vaccine: Pediat rics (0 to 5 Years) and At-Risk Patients (6 to 64 Years) Aged Out No longer eligible b ased on patient's age to complete this topic RSV Immunization Patients Un paul 20 months Aged Out No longer eligible b ased on patient's age to complete this topic Varicella Vaccines Aged Out No longer eligible based on patient's age to complete this topic Care Teams Wood 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
--- NOTE | 2024-07-23 08:16 | AM.OFFWIN_ITS ---
Intake Vital Signs 07/23/24 08:19 Weight 138 lb BP 112/70 Blood Pressure Location Lt brachial Position Sitting Pulse 68 Pulse Source Pulse Oximeter Temp 97.8 F Temp Source Oral Pulse Oximetry (%) 98 Oxygen Delivery Method Room Air Intake Visit Reasons: EP Lt ear/eye irritation (over in lab) Intake Note: Patient here left ear irritation and left eye redness and dry sensation which started Friday Patient Tobacco Use Status: Never used Tobacco Allergies hydrocodone [HYDROCODONE] Allergy (Unknown, Verified 07/23/24 08:17) HYPOTENSION, VOMITING, WEAKNESS oxycodone [From PERCOCET] Allergy (Unknown, Verified 07/23/24 08:17) vomiting tramadol [TRAMADOL] Allergy (Unknown, Verified 07/23/24 08:17) vomiting Do you need a note to return to daycare/school/sports/work: No HPI HPI Comments History of Present Illness Details This is a 54-year-old female presenting to the walk-in clinic complaining of left ear aching and left eye irritation. She states it started 2 days ago. She also reports some mild left-sided sore throat. She denies any fever/chills. She denies any nasal congestion or rhinorrhea. She denies any c hest pain or shortness of breath. She denies any otorrhea or eye drainage/discharge. She states she has been using her son's prescription ear drops as she thought she might have had an ear infection but these have not been helping. [facility] Medical History Perforated bowel Asthma Surgical History History of esophagogastroduodenoscopy (EGD) H/O abdominoplasty H/O bilateral breast reduction surgery Hx of colonoscopy Social History Patient Tobacco Use Status: Never used Tobacco Review of Systems Const All systems reviewed & are unremarkable except as noted in HPI and below Reports no additional complaints Eyes Reports no additional complaints ENT Reports no additional complaints Card Reports no additional complaints Resp Reports no additional complaints GI Reports no additional complaints Reports no additional complaints Musc Reports no additional complaints Skin/Breast Reports system reviewed and no additional complaints, except as documented Neuro Reports no additional complaints Psych Reports no additional complaints Endo Reports no additional complaints Jv/Lymph Reports no additional complaints Aller/Immun Reports no additional complaints Physical Exam Vital Signs: Last Vital Signs Temp 97.8 F 07/23/24 08:19 Pulse 68 07/23/24 08:19 BP 112/70 07/23/24 08:19 Pulse Ox 98 07/23/24 08:19 Oxygen Delivery Method Room Air 07/23/24 08:19 Const Other: Vital signs reviewed. Constitutional: Non-toxic appearing. No acute distress. Well-developed and well-nourished. HEENT: Normocephalic and atraumatic. Minimal conjunctival injection of the left eye. Tympanic membranes without erythema, edema, or bulging bilaterally. External auditory canals without erythema or edema bilaterally. Moist mucous membranes. There is mild left tonsillar erythema without exudates or edema/hypertrophy. Skin: Warm and dry. No rashes or lesions noted. Neck: Full and painless range of motion. No cervical lymphadenopathy. Cardio: Regular rate. No lower extremity edema. No JVD. Pulmonary: No respiratory distress. No accessory muscle usage. Musculoskeletal: Normal range of motion in joints throughout the body. No deformity or other signs of injury. Neuro: Alert and oriented x4. Cranial nerves 2-12 grossly intact. No focal deficits appreciated. Psych: Normal mood and affect. Assessment & Plan Assessment & Plan (1) Seasonal allergies: Code(s): J30.2 - Other seasonal allergic rhinitis (2) Acute upper respiratory infection, unspecified: Code(s): J06.9 - Acute upper respiratory infection, unspecified Plan This is a 54-year-old female who presented to the walk-in clinic complaining of mild left ear aching, left eye irritation, and left-sided sore throat x2 days. Her physical exam is benign with the exception of mild left tonsillar erythema without edema/hypertrophy or exudates and minimal conjunctival injection of the left eye. Her history and physical most consistent with allergic versus viral conjunctivitis/rhinitis/pharyngitis. COVID/flu/RSV testing was sent. I recommended symptomatic management including rest, increased fluids, advil/tylenol for pain/fever, over the counter throat lozenges/decongestants, humidification at nighttime, and oral/ophthalmic antihistamines. Patient advised to follow up here or go to the emergency room for worsening/persistent symptoms. Patient verbalized understanding and is agreeable with the plan. Orders: Orders SARS-CoV2/FLU/RSV Today J06.9 - Acute upper respiratory infection, unspecified Coding Level of Care Code Est Pt Level 3 (98095) Diagnoses Seasonal allergies J30.2 Acute upper respiratory infection, unspecified J06.9
== END | disposition home or self-care (01) ==

== ENCOUNTER 2024-07-23 15:30 | Outpatient (AMB) | payer OTHER, SELFPAY ==
--- NOTE | 2024-07-23 15:31 | MHC.OFFVIS ---
Intake Visit Reasons: 6 month follow up Intake Note: Alva presents as a telehealth 6 month follow up. CC: She states that she is not having any concerns at this time. Allergies hydrocodone [HYDROCODONE] Allergy (Unknown, Verified 07/23/24 15:31) HYPOTENSION, VOMITING, WEAKNESS oxycodone [From PERCOCET] Allergy (Unknown, Verified 07/23/24 15:31) vomiting tramadol [TRAMADOL] Allergy (Unknown, Verified 07/23/24 15:31) vomiting HPI Comments Details: 52 y.o F with PMH of who is here to for follow up: 07/09/22: RUQ pain last month that started at work which progressively got worse over a few hours. Lasted for 2 days. Associated with nausea, no radiation. Was able to eat with this. No fevers but did have chills. Never had this pain before. Has gallbladder in situ. Takes tylenol and naproxen 1-3 times a month. Has been taking pantoprazole 40 since this episode which she thinks has helped. Of note, sister had cholecystectomy in her 40s. She also wishes to discuss colon cancer screening. Her last colonoscopy was many years ago when she had rectal bleeding was told she has hemorrhoids. Constipated at baseline and does not changes in bowel habits but does frequently see fresh blood in toilet bowl after straining for a BM. Occurs almost every month. Last episode was last week, can also sometimes feel hemorrhoids protruding downwards. No fam hx of colon cancer or advanced polyps. 08/29/22: EGD/[place] Grade A esophagitis Nonobstructing Schatzki's ring Hiatal hernia Gastritis (biopsy) Normal duodenum (biopsy) Normal colon and terminal ileum mucosa Diverticulosis Bleeding internal hemorrhoids Path: A. Duodenum, biopsy: Chronic inactive duodenitis. B. Stomach, random, biopsy: Oxyntic mucosa with mild chronic inactive inflammation; no Helicobacter organisms seen. 09/16/22: Currently no acute gastrointestinal sx. Has noticed some food triggers for heartburn and tries to avoid them. Otherwise no RUQ pain or nausea. On PPI BID since the scope. Has also been referred to surg for bleeding hemorrhoids, however quite hesitant re the surgery itself. 12/25/22: Has been seen by Dr Baez for ? hemorrhoidectomy and pt would like to hold off at this point. Was not able to get topical lidocaine/hydrocortisone for [place] application due to insurance cost however was able to get anusol suppositories and sx of rectal discomfort, fullness and bleeding resolved within 7-10 days. Currently, no gastrointestinal complaints. She tried to come off the PPI but had recurrence of heartburn and wonders if she needs it lifelong. 01/23/24: Here for ER follow up. Reports an episode of diarrhea x 10 days that started around 2-3 weeks ago. Was seen in ER for this as well cameron when it lasted > [address] scan neg for diverticulitis. Once the diarrhea resolved she developed constipation assoc with RUQ and RLQ pain. Notices that symptoms are more prominent after she has red meat. Does not give any history of tick bite. CT Abd/pel 12/2023: 1. No acute process of the abdomen or pelvis identified. 2. 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 Correlation with symptomatology. 3. Left parapelvic cysts, not requiring follow-up. Reflux well controlled. Continues on protonix. 07/23/24: Here as video telehealth visit. Previous labs and ultrasound results were already discussed with the patient over the phone. Reports no active GI issues. Continues with fluctuating diarrhea and constipation. Tried metamucil but stoppped due to bloating. Hemorrhoids have not bothered her, but would like to have topical steroid refilled in case she needs it. GERD is better has to take pantoprazole a few days a week. [facility] Medical History Perforated bowel Asthma Surgical History History of esophagogastroduodenoscopy (EGD) H/O abdominoplasty H/O bilateral breast reduction surgery Hx of colonoscopy Social History Patient Tobacco Use Status: Never used Tobacco Review of Systems Const All systems reviewed & are unremarkable except as noted in HPI and below Physical Exam Vital Signs: Video visit: No acute distress No icterus noted No facial asymmetry Speaking in full sentences Telehealth Telehealth Telehealth Platform: [facility] Location of provider rendering services: practice address Location of patient: address on file Patient Identification confirmed using: Name, : Yes Telehealth method: video Patient verbally consented to treatment: Yes Patient verbally consented to billing insurance company: Yes Patient informed of any privacy concerns related to visit: Yes Minutes spent on Phone/Video with Pt.: 12 Assessment & Plan Assessment & Plan (1) Right upper quadrant pain: Code(s): R10.11 - Right upper quadrant pain Category: Medical (2) Diarrhea: Code(s): R19.7 - Diarrhea, unspecified Category: Medical (3) Change in bowel habit: Code(s): R19.4 - Change in bowel habit Category: Medical Plan Likely has IBS mixed-type. Reviewed daily use of fiber, short-term bloating expected, but should go away in 2-3 weeks. It does not improve, can switch to Benefiber. In terms of GERD, educated that Protonix does not work as well if taken on p.r.n. basis. If she is having symptoms >3days/week would recommend daily use for x 8 weeks. Otherwise, Pepcid 10 mg will be a better choice to take on an as-needed basis. Topical hydrocortisone refills. Patient educated to call office if has >2-3 flare-up of hemorrhoids in a year, to consider surgical management. Follow-up in 6 months as requested by the patient. Medications: Refilled pantoprazole 40 mg PO DAILY 90 tabs 0RF hydrocortisone acetate 30 mg [place] DAILY 12 ea 2RF Coding Level of Care Code Tele Est Pt Level 4 (65041) Diagnoses Right upper quadrant pain R10.11 Diarrhea R19.7 Change in bowel habit R19.4
== END 2024-07-23 16:38 | disposition home or self-care (01) ==
LOC: HO.HGI 15:30
PROVIDERS: PCP Internal Medicine; Visit Provider Internal Medicine
DX: R10.11 Right upper quadrant pain (principal); R19.7 Diarrhea, unspecified
CPT/HCPCS: 99214

== ENCOUNTER 2024-10-06 08:08 | Outpatient (AMB) | payer OTHER, SELFPAY ==
--- NOTE | 2024-10-06 08:09 | MHC.OFFWIV ---
Intake Vital Signs 10/06/24 08:11 Weight 146 lb BP 110/68 Blood Pressure Location Rt brachial Position Sitting Pulse 71 Pulse Source Pulse Oximeter Pulse Oximetry (%) 98 Oxygen Delivery Method Room Air Intake Visit Reasons: EP-lt ear and side face pain Intake Note: Patient here for left ear pain, headache on right side and face feels sore which started yesterday. Patient Tobacco Use Status: Never used Tobacco Allergies hydrocodone [HYDROCODONE] Allergy (Unknown, Verified 10/06/24 08:12) HYPOTENSION, VOMITING, WEAKNESS oxycodone [From PERCOCET] Allergy (Unknown, Verified 10/06/24 08:12) vomiting tramadol [TRAMADOL] Allergy (Unknown, Verified 10/06/24 08:12) vomiting Do you need a note to return to daycare/school/sports/work: Yes HPI HPI Comments History of Present Illness Details Patient is a 54yo F who presents to office with L ear/face pain Onset this am Yesterday she had throbbing in L side of gums Denies any dental trauma or dental caries She said pain this am radiated from gums into L cheek and L ear No ear discharge or hearing loss She said L eye felt red and irritated this am but resolved She has not taken anything for her symptoms Worsened with jaw movements + chills without documented fever last night No ST, difficulty swallowing, congestion, or cough Pain throbbing pain varying in intensity from 3 at minimum. [facility] Medical History Perforated bowel Asthma Surgical History History of esophagogastroduodenoscopy (EGD) H/O abdominoplasty H/O bilateral breast reduction surgery Hx of colonoscopy Social History Patient Tobacco Use Status: Never used Tobacco Review of Systems Const Reports chills, Denies fatigue and Denies fever(s) Eyes Denies change in vision, Reports irritation (L eye this am, resolved) and Denies loss of vision ENT Reports Normal hearing present, Reports otalgia, Reports facial pain, Reports mouth pain, Denies nasal congestion, Denies sore throat, Denies throat swelling and Denies tongue swelling Card Denies chest pain and Denies dyspnea Resp Denies cough and Denies dyspnea Skin/Breast Denies rash Neuro Reports Normal hearing present and Denies loss of vision Endo Denies fatigue Aller/Immun Denies throat swelling and Denies tongue swelling Physical Exam Vital Signs: Last Vital Signs Pulse 71 10/06/24 08:11 BP 110/68 10/06/24 08:11 Pulse Ox 98 10/06/24 08:11 Oxygen Delivery Method Room Air 10/06/24 08:11 General: Non-toxic, NAD. Speaking full sentences. Skin: Warm dry throughout. No facial edema, erythema or rashes/lesions noted Eye: EOMI, PERRL. No conjunctival erythema HENT: Airway patent. Uvula midline. No pharyngeal erythema or edema. No STRATEGIC CONSULTANT. There is no salivary gland edema, erythema, discharge or ttp. No masses/induration or tenderness to palpation floor of mouth. No tongue edema. No dental caries noted. ttp L gums just posterior to lower molars. No abscess, induration or fluctuance noted. No discharge. No mastoid tenderness bilaterally. Sensitivity to palpation of L auricle. Bilateral canals clear. TM non-erythematous, non-bulging. No TM perforation or hemotympanum noted. + small fluid behind L TM Slight ttp L maxillary sinus. No ethmoid or frontal sinus ttp bilaterally Lymph: No lymphadenopathy noted. Respiratory: CTA bilaterally. No wheezes, rales or rhonchi Cardiac: RRR. No murmur MSK: Full ROM extremities. Neurology: Alert. No aphasia or facial droop. Gait without abnormality Psych: Good mood and affect Neuro Cranial nerves: Yes Normal hearing present Assessment & Plan Assessment & Plan (1) Pain, dental: Code(s): K08.89 - Other specified disorders of teeth and supporting structures Plan: Patient seen and evaluated. No dental abscess or OM on exam Amoxicillin Head elevation Naproxen (tolerated fine with hx of GERD) Patient gave verbal understanding and had no additional questions or concerns at time of discharge All questions answered Medications: New amoxicillin 500 mg PO BID 14 tabs 0RF naproxen 500 mg PO BID 20 tabs 0RF Coding Level of Care Code Est Pt Level 3 (70548) Diagnoses Pain, dental K08.89
[2024-10-06 08:11] VITALS: BP 110/68; PULSE 71; O2SAT 98
--- OUTSIDE RECORDS SUMMARY | 2024-10-06 08:19 | XMS_ITS | Clinical Summary ---
[facility] [address] [place] [address] Care Team Providers Care Manufacturing Chief Engineer Name Role Phone Barry Polo MD [facility] Surgical History Surgery Date Site/Laterality Comments OTHER SURGICAL HISTORY PROCEDURE: BREAST CYST,FLUID FOR CYTOLOGY EXAM TUBAL LIGATION PROCEDURE: HISTORICAL TUBAL LIGATION BELT ABDOMINOPLASTY PROCEDURE: HISTORICAL TUMMY TUCK Medical History Medical History Date Comments Irritable bowel syndrome DX:Irri table bowel syndrome Asthma DX:Asthma Perforation of sigmoid colon (CMS/HCC V24, CMS/HCC V28) DX:Perforation of sigmoid co tamara ([facility]); COMMENT: microperforation Secondary to colonoscopy Family History Medical History Relation Name Comments Other: Other Father Stroke Father Diabetes Mother Other: Other Mother Relation Name Status Comments Father Mother Social History Tobacco Use Types Packs/Day Years Used Date Smoking Tobacco: Never Smokeless Tobacco: Never Alcohol Use Standard Drinks/Week Comments No 0 (1 standard drink = 0.6 oz pur e alcohol) Comments Unknown Sex and Gender Information Value Date Recorded Sex Assigned at Not on file Legal Sex Female 11:39 AM EST Gender Identity Not on file Sexual Orientation Not on file Obstetrics History Plan of Treatment Health Maintenance Due Date Last Done Comments Breast Cancer Screening 1969 DTaP,Tdap,and Td Vaccines (1 - Tdap) 1988 Hepatitis B Vaccines (1 of 3 - 19+ 3-dose series) 1988 Cervical Cancer Screening: P ap Smear 1990 Pneumococcal Vaccine: 50+ Ye ars (1 of 1 - PCV) 2019 Zoster Vaccines (1 of 2) 2019 COVID-19 Vaccine ( - 2023-2 5 season) 2024 Influenza Vaccine (Season Ended) 2025 HIB Vaccines Aged Out No longer eligi [...] patient's age to complete this topic Meningococcal B Vaccine Aged Out No l onger eligible based on patient's age to complete [...] age to complete this topic Care Teams Manufacturing Chief Engineer Relationship Specialty Start Date End Date Barry Polo MD [address] [place] [address] [place] [address] PCP - General Internal Medicine 08/26/18
== END 2024-10-06 08:34 | disposition home or self-care (01) ==
PROVIDERS: PCP Internal Medicine; Visit Provider Physician Assistant
DX: K08.89 Other specified disorders of teeth and supporting structures (principal)

== ENCOUNTER → 2024-10-06 08:08 | Outpatient (BNVA) | payer OTHER, SELFPAY | PROVIDERS: PCP Internal Medicine; Visit Provider Physician Assistant | DX: Z13.89 Encounter for screening for other disorder (principal) ==

== ENCOUNTER 2024-11-04 16:00 | Outpatient (RCR) | payer OTHER, SELFPAY | END 2024-11-30 08:28 | disposition home or self-care (01) | LOC: HO.PTCHIC 16:00 | PROVIDERS: PCP Internal Medicine; Visit Provider Internal Medicine | DX: M54.2 Cervicalgia (principal); M54.50 Low back pain, unspecified | CPT/HCPCS: 97110; 97140; 97162; 97164 ==

== ENCOUNTER → 2024-11-13 08:10 | Outpatient (BNV) | payer OTHER, SELFPAY | PROVIDERS: PCP Internal Medicine; Visit Provider Radiology Diagnostic Radiology | DX: M50.322 Other cervical disc degeneration at C5-C6 level (principal) | CPT/HCPCS: 72141 ==

== ENCOUNTER 2024-11-13 08:54 | Outpatient (REF) | payer OTHER, SELFPAY ==
--- NOTE | ~2024-11-13 | MR_ITS ---
CLINICAL HISTORY: RADICULOPATHY MR cervical spine without gadolinium Comparison: None Vertebral alignment is within normal limits. C2-C3: No significant annular bulges or focal disc herniation. Patent neural foramina. C3-C4: Disc desiccation without significant loss of height. Uncinate joint arthropathy. Patent neural foramina. C4-C5: Disc desiccation and minimal annular bulge mildly deforms the dural sac. There is uncinate joint arthropathy and mild narrowing of the right neural foramen. C5-C6: Disc desiccation and loss of height with annular bulge osteophyte complex mildly deforming the dural sac. There is uncinate joint arthropathy with mild narrowing of the bilateral neural foramina [id number]-left C6-C7: Disc desiccation without loss of height. No significant annular bulge or focal herniation. Patent bilateral neural foramina. C7-T1: Mild disc desiccation otherwise unremarkable. No acute fractures or pathologic bone lesions. Visualized intracranial contents are unremarkable. No cervical fluid collections or masses. Cervical cord normal. IMPRESSION: 1. Multilevel disc desiccation with loss of height particularly at the C5-6 level. 2. Minimal annular bulge at C4-C5 with uncinate joint arthropathy mild narrowing of the right neural foramen. 3. Annular bulge osteophyte complex deforms the dural sac at C5-C6. Uncinate joint arthropathy with mild of the bilateral neural foramina uuqrz-[id number]-nods-left. This document has been electronically signed by: Michi Rosales MD on 11/15/2024 10:45:36
== END 2024-11-13 08:55 | disposition home or self-care (01) ==
LOC: HO.MRI 08:54
PROVIDERS: PCP Internal Medicine; Visit Provider Internal Medicine
DX: M54.12 Radiculopathy, cervical region (principal)
CPT/HCPCS: 72141

== ENCOUNTER 2024-11-19 06:01 | Outpatient (REF) | payer OTHER, SELFPAY ==
[2024-11-19 10:12] LABS: MANUAL DIFF FLAG NO
[2024-11-19 10:30] LABS: Basophils Percent Auto 0.3 % (0-2); Eosinophils Absolute Auto 0.1 X10*3/uL (0.0-0.4); Eosinophils Percent Auto 2.3 % (0-4); Hematocrit 43.3 % (37.0-47.0); Hemoglobin 14.4 g/dl (12.0-16.0); Imm Gran Abs Auto 0.01 X10*3/uL (0.00-0.03); Imm Gran Pct Auto 0.3 % (0.0-0.4); Lymphocytes Absolute Auto 2.1 X10*3/uL (1.2-4.9); Lymphocytes Percent Auto 51.8 % (20-40); Mean Corpuscular HGB Conc 33.3 g/dl (31.0-35.0); Mean Corpuscular Hemoglobin 29.3 pg (27.0-33.0); Mean Platelet Volume 9.8 fL (9.4-12.3); Monocytes Absolute Auto 0.2 X10*3/uL (0.1-1.2); Monocytes Percent Auto 6.1 % (2-11); NRBC Pct Auto 0.5 /100WBC (0.0-0.2); Neutrophils Absolute Auto 1.6 x10*3/uL (2.0-8.3); Neutrophils Percent Auto 39.2 % (45-73); Platelet Count 323 X10*3/uL (160-400); Red Blood Count 4.92 X10*6/uL (4.20-5.50); Red Cell Distribution Width 13.2 % (11.0-16.0)
[2024-11-19 11:04] LABS: Alanine Aminotransferase 32 U/L (0-31); Albumin Level 4.6 g/dL (3.5-5.0); Anion Gap 11 (12-20); Aspartate Amino Transferase 28 U/L (5-31); Bilirubin Total 0.5 mg/dL (0.0-1.0); Blood Urea Nitrogen 15 mg/dL (9-16); Calcium 9.4 mg/dL (8.4-10.2); Carbon Dioxide 28 mmol/L (22-29); Chloride 106 mmol/L (96-108); Cholesterol 229 mg/dL (<200); Estimated Glomerular Filt Rate > 60; Glucose Random 76 mg/dL (60-115); HDL Cholesterol 66 mg/dL (>40); Iron 94 mcg/dL (30-160); LDL Cholesterol Calculated 146 mg/dL (<100); Magnesium 2.1 mg/dL (1.6-2.6); Percent Iron Saturation 28 % (15-50); Potassium 3.7 mmol/L (3.3-5.1); Sodium 141 mmol/L (135-145); Total Iron Binding Capacity 335 mcg/dL (228-428); Total Protein 7.4 g/dL (6.5-8.0); Triglycerides 86 mg/dL (<150); Unsaturated Iron Binding 241 ug/dL
[2024-11-19 11:14] LABS: Ferritin 48 ng/mL (10-250); Free T4 (Free Thyroxine) 0.98 ng/dL (0.71-1.85); Thyroid Stimulating Hormone 1.46 uIU/mL (0.32-4.0)
[2024-11-19 12:01] LABS: Alkaline Phosphatase 120 U/L (39-117)
== END 2024-11-19 06:02 | disposition home or self-care (01) ==
LOC: HO.HMGCLDS 06:01
PROVIDERS: PCP Internal Medicine; Visit Provider Internal Medicine
DX: R53.83 Other fatigue (principal)
CPT/HCPCS: 36415; 80053; 80061; 82728; 83540; 83735; 84439; 84443; 85025

== ENCOUNTER 2024-12-10 13:50 | Outpatient (AMB) | payer OTHER, SELFPAY ==
--- OUTSIDE RECORDS SUMMARY | 2024-12-10 14:17 | XMS_ITS | Clinical Summary ---
[facility] Organization [facility] Address [address] [place] [address] Care Team Providers Care Time Clock Mechanic Name Role Phone Barry Polo MD [facility] Surgical History Surgery Date Site/Laterality Comments OTHER SURGICAL HISTORY PROCEDURE: BREAST CYST,FLUID FOR CYTOLOGY EXAM TUBAL LIGATION PROCEDURE: HISTORICAL TUBAL LIGATION BELT ABDOMINOPLASTY PROCEDURE: HISTORICAL TUMMY TUCK Medical History Medical History Date Comments Irritable bowel syndrome DX:Irri table bowel syndrome Asthma DX:Asthma Perforation of sigmoid colon (CMS/HCC V24, CMS/HCC V28) DX:Perforation of sigmoid co tamara ([facility]); COMMENT: microperforation Secondary to colonoscopy Family History [...] age to complete this topic Care Teams Time Clock Mechanic Relationship Specialty Start Date End Date Barry Polo MD [address] [place] [address] [place] [address] PCP - General Internal Medicine 08/26/18
--- NOTE | 2024-12-10 14:23 | HO.SPINEOV ---
Intake Visit Reasons: cervical stenosis Intake Note: Ms. Enriquez is here today c/o neck pain Pattern Lease Inspector Required: No Allergies hydrocodone (HYDROCODONE) Allergy (Unknown, Verified 10/06/24 08:12) HYPOTENSION, VOMITING, WEAKNESS oxycodone (From PERCOCET) Allergy (Unknown, Verified 10/06/24 08:12) vomiting tramadol (TRAMADOL) Allergy (Unknown, Verified 10/06/24 08:12) vomiting Assessment & Plan Assessment & Plan (1) Cervical muscle strain: Code(s): S16.1XXA - Strain of muscle, fascia and tendon at neck level, initial encounter Category: Medical Plan Dear Dr Ruff, Thank you for referring Mrs Enriquez to our office today. 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 Her symptoms are in the lower part of the cervical spine but can radiate into her subscapular area as well as up to the back of her head. She will periodically take naproxen, ibuprofen or tizanidine to help with the symptoms. There is no pain radiating down the arms, tingling numbness etc.. She did undergo go physical therapy and that seemed to help quite a bit, specifically the massage component of it. She has been adjusting how she sleeps as well. She comes in today with an MRI showing degenerative disc disease at C5-6 with annular tear C4-5. PMH: She is otherwise healthy, has history of migraines, IBS and a distal hernia in her intestine somewhere, breast reduction, tubal ligation and a tummy tuck Social hx: She has not smoke, drink use any recreational drugs Medications: Ibuprofen, acetaminophen, pantoprazole tizanidine Allergies: Hydrocodone, oxycodone and tramadol Physical exam: Awake alert oriented no acute distress, strength, reflexes are all normal. Imaging review: Cervical MRI done at [place] shows mild disc degeneration at C4-5 and C5-6, there is a small annular tear at C4-5, there is some mild bilateral neuroforaminal narrowing at C5-6. Impression: 54-year-old female presents with posterior cervical neck pain that can radiate up toward the back of her head as well as into her subscapular area, she has some [id number]-qp-cgmubpky degenerative changes in her cervical spine but nothing that looks like it is bad enough to need surgery. Many of the things that we are seeing on her MRI can be seen in patients who have no symptoms. 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 A lot of what she is experiencing is muscle tension and that is reinforced by the fact that physical therapy helped so much when they were doing the massages. I do not see anything on her imaging that looks like she needs an operation. If she starts to develop symptoms shooting down her arms or something more localizing then we can see her back and re-evaluate but for now I think she should just continue to do lifestyle modifications, physical therapy exercises and massages as needed. Thank you for allowing us to care for your patient. The total time spent with this visit with this patient was 45 minutes reviewing history, physical exam, cervical spine imaging review, and implementation of treatment plan or further diagnostic testing Sharan Hines MD,PhD [facility] Coding Level of Care Code New Pt Level 4 (89997) Diagnoses Cervical muscle strain S16.1XXA
== END 2024-12-10 14:54 | disposition home or self-care (01) ==
LOC: HO.HNS 13:50
PROVIDERS: PCP Internal Medicine; Referring Provider Internal Medicine; Visit Provider Physician Assistant
DX: S16.1XXA Strain of muscle, fascia and tendon at neck level, initial encounter (principal)
CPT/HCPCS: 99204

== ENCOUNTER 2024-12-22 14:53 | Outpatient (REF) | payer OTHER, SELFPAY ==
--- NOTE | ~2024-12-22 | MM_ITS ---
EXAMINATION: MM SCREENING DIGITAL BREAST TOMOSYNTHESIS, BILATERAL CLINICAL INFORMATION: Screening. Asymptomatic. COMPARISON: Mammography: Comparison is made with available priors TECHNIQUE: Digital breast mammography with tomosynthesis is performed in both the craniocaudal and mediolateral oblique views along with computer-aided detection (CAD). FINDINGS: There are scattered areas of fibroglandular density (ACR BI-RADS breast composition Category b). Bilateral reduction mammoplasty. There are no significant masses, abnormal calcifications, or other abnormalities. MM/MM tomosynthesis screening BI IMPRESSION: No mammographic evidence of malignancy. ASSESSMENT: BI-RADS BI-RADS 1 - Negative RECOMMENDATION: Routine annual mammography screening. 1 year F/U This examination should not preclude the clinical evaluation of a suspicious palpable abnormality. This patient's information was entered into a reminder system with a target due date for their next mammogram. Electronically signed by: Em Waggoner DO 01/04/2025 05:22 PM EDT
--- OUTSIDE RECORDS SUMMARY | 2024-12-22 15:21 | XMS_ITS | Clinical Summary ---
[facility] Address [address] [place] [address] Care Team Providers Care Land Development Manager Name Role Phone Barry Polo MD Primary Care [facility] Surgical History Surgery Date Site/Laterality Comments OTHER SURGICAL HISTORY PROCEDURE: BREAST CYST,FLUID FOR CYTOLOGY EXAM TUBAL LIGATION PROCEDURE: HISTORICAL TUBAL LIGATION BELT ABDOMINOPLASTY PROCEDURE: HISTORICAL TUMMY TUCK Medical History Medical History Date Comments Irritable bowel syndrome DX:Irri table bowel syndrome Asthma DX:Asthma Perforation of sigmoid colon (CMS/HCC V24, CMS/HCC V28) DX:Perforation of sigmoid co tamara ([facility]); COMMENT: microperforation Secondary to colonoscopy Family History [...] 2023-2 5 season) 2024 Influenza Vaccine (#1) 2025 HIB Vaccines Aged Out No longer [...] 5 Years) and At-Risk Patients (6 to 49 Years) Aged Out No longer eligible b ased on patient's age to complete this topic RSV Immunization Patients Un paul 20 months Aged Out No longer eligible b ased on patient's age to complete this topic Varicella Vaccines Aged Out No longer eligible based on patient's age to complete this topic Care Teams Land Development Manager Relationship Specialty Start Date End Date Barry Polo MD [address] [place] [address] [place] [address] PCP - General Internal Medicine 08/26/18
== END 2024-12-22 14:54 | disposition home or self-care (01) ==
LOC: HO.MAMMO 14:53
PROVIDERS: PCP Internal Medicine; Visit Provider Internal Medicine
DX: Z12.31 Encounter for screening mammogram for malignant neoplasm of breast (principal)
CPT/HCPCS: 77063; 77067

== ENCOUNTER → 2024-12-22 15:30 | Outpatient (BNV) | payer OTHER, SELFPAY | PROVIDERS: PCP Internal Medicine; Visit Provider Internal Medicine | DX: Z12.31 Encounter for screening mammogram for malignant neoplasm of breast (principal) | CPT/HCPCS: 77063; 77067 ==

== ENCOUNTER → 2025-01-17 15:16 | Outpatient (AMB) | payer OTHER, SELFPAY ==
--- NOTE | 2025-01-17 15:16 | MHC.OFFVIS ---
Intake Visit Reasons: 6 mo f/u Intake Note: Alva presents as a telehealth today for a 6 month follow up. CC: She states that she is not having any concerns at this moment. Portable Irrigation Operator Required: No Allergies hydrocodone (HYDROCODONE) Allergy (Unknown, Verified 01/17/25 15:16) HYPOTENSION, VOMITING, WEAKNESS oxycodone (From PERCOCET) Allergy (Unknown, Verified 01/17/25 15:16) vomiting tramadol (TRAMADOL) Allergy (Unknown, Verified 01/17/25 15:16) vomiting HPI Comments Details: 52 y.o F with PMH of who is here to for follow up: 07/09/22: RUQ pain last month that started at work which progressively got worse over a few hours. Lasted for 2 days. Associated with nausea, no radiation. Was able to eat with this. No fevers but did have chills. Never had this pain before. Has gallbladder in situ. Takes tylenol and naproxen 1-3 times a month. Has been taking pantoprazole 40 since this episode which she thinks has helped. Of note, sister had cholecystectomy in her 40s. She also wishes to discuss colon cancer screening. Her last colonoscopy was many years ago when she had rectal bleeding was told she has hemorrhoids. Constipated at baseline and does not changes in bowel habits but does frequently see fresh blood in toilet bowl after straining for a BM. Occurs almost every month. Last episode was last week, can also sometimes feel hemorrhoids protruding downwards. No fam hx of colon cancer or advanced polyps. 08/29/22: EGD/[facility] Grade A esophagitis Nonobstructing Schatzki's ring Hiatal hernia Gastritis (biopsy) Normal duodenum (biopsy) Normal colon and terminal ileum mucosa Diverticulosis Bleeding internal hemorrhoids Path: A. Duodenum, biopsy: Chronic inactive duodenitis. B. Stomach, random, biopsy: Oxyntic mucosa with mild chronic inactive inflammation; no Helicobacter organisms seen. 09/16/22: Currently no acute gastrointestinal sx. Has noticed some food triggers for heartburn and tries to avoid them. Otherwise no RUQ pain or nausea. On PPI BID since the scope. Has also been referred to surg for bleeding hemorrhoids, however quite hesitant re the surgery itself. 12/25/22: Has been seen by Dr Baez for ? hemorrhoidectomy and pt would like to hold off at this point. Was not able to get topical lidocaine/hydrocortisone for [facility] application due to insurance cost however was able to get anusol suppositories and sx of rectal discomfort, fullness and bleeding resolved within 7-10 days. Currently, no gastrointestinal complaints. She tried to come off the PPI but had recurrence of heartburn and wonders if she needs it lifelong. 01/23/24: Here for ER follow up. Reports an episode of diarrhea x 10 days that started around 2-3 weeks ago. Was seen in ER for this as well cameron when it lasted > [address] scan neg for diverticulitis. Once the diarrhea resolved she developed constipation assoc with RUQ and RLQ pain. Notices that symptoms are more prominent after she has red meat. Does not give any history of tick bite. CT Abd/pel 12/2023: 1. No acute process of the abdomen or pelvis identified. 2. 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 Correlation with symptomatology. 3. Left parapelvic cysts, not requiring follow-up. Reflux well controlled. Continues on protonix. 07/23/24: Here as video telehealth visit. Previous labs and ultrasound results were already discussed with the patient over the phone. Reports no active GI issues. Continues with fluctuating diarrhea and constipation. Tried metamucil but stoppped due to bloating. Hemorrhoids have not bothered her, but would like to have topical steroid refilled in case she needs it. GERD is better has to take pantoprazole a few days a week. 01/17/25: Here for video telehealth visit. Overall doing well. Reports some discomfort just this morning after she rapidly tried to finish the cereal. Otherwise no sx. Hemorrhoids under control. Recenyl started on naproxen but takes with naproxen to avoid any pyrosis or abd pain. [facility] Medical History Perforated bowel Asthma Surgical History History of esophagogastroduodenoscopy (EGD) H/O abdominoplasty H/O bilateral breast reduction surgery Hx of colonoscopy Social History Patient Tobacco Use Status: Never used Tobacco Review of Systems Const All systems reviewed & are unremarkable except as noted in HPI and below Physical Exam Exam Exam: Video visit: No acute distress No icterus noted No facial asymmetry Speaking in full sentences Telehealth Telehealth Telehealth Platform: [employer] Location of provider rendering services: practice address Location of patient: address on file Patient Identification confirmed using: Name, : Yes Telehealth method: video Patient verbally consented to treatment: Yes Patient verbally consented to billing insurance company: Yes Patient informed of any privacy concerns related to visit: Yes Minutes spent on Phone/Video with Pt.: 15 Assessment & Plan Assessment & Plan (1) Right upper quadrant pain: Code(s): R10.11 - Right upper quadrant pain Category: Medical (2) Bleeding internal hemorrhoids: Code(s): K64.8 - Other hemorrhoids Category: Surgical (3) Irritable bowel syndrome with mixed bowel habits: Code(s): K58.2 - Mixed irritable bowel syndrome Category: Medical Plan Likely has IBS mixed-type. Currently well controlled and managed. Occ takes NSAIDS but knows to take with PPI. Protonix refilled today. Overall no acute GI issues at present. Next colo due 2032. Follow-up in 1 year as requested by the patient. Medications: Refilled pantoprazole 40 mg PO DAILY 90 tabs 1RF Coding Level of Care Code Tele Est Pt Level 4 (77215) Diagnoses Right upper quadrant pain R10.11 Bleeding internal hemorrhoids K64.8 Irritable bowel syndrome with mixed bowel habits K58.2
--- OUTSIDE RECORDS SUMMARY | 2025-01-17 15:18 | XMS_ITS | Clinical Summary ---
[facility] Organization [facility] Address [address] [place] [address] Care Team Providers Care Turn Supervisor Name Role Phone Barry Polo MD [facility] Surgical History Surgery Date Site/Laterality Comments OTHER SURGICAL HISTORY PROCEDURE: BREAST CYST,FLUID FOR CYTOLOGY EXAM TUBAL LIGATION PROCEDURE: HISTORICAL TUBAL LIGATION BELT ABDOMINOPLASTY PROCEDURE: HISTORICAL TUMMY TUCK Medical History Medical History Date Comments Irritable bowel syndrome DX:Irri table bowel syndrome Asthma DX:Asthma Perforation of sigmoid colon (CMS/HCC V24, CMS/HCC V28) DX:Perforation of sigmoid co tamara ([facility]); COMMENT: microperforation Secondary to colonoscopy Family History [...] Vaccine ( - 2023-2 5 season) 2024 Depression Screening 06/16/2024 Influenza Vaccine (#1) 2025 HIB Vaccines Aged [...] age to complete this topic Care Teams Turn Supervisor Relationship Specialty Start Date End Date Barry Polo MD [address] [place] [address] [facility] [id number] PCP - General Internal Medicine 08/26/18
== END ==
LOC: HO.HGI 15:16
PROVIDERS: PCP Internal Medicine; Visit Provider Internal Medicine
DX: R10.11 Right upper quadrant pain (principal); K64.8 Other hemorrhoids; K58.2 Mixed irritable bowel syndrome
CPT/HCPCS: 99214

== ENCOUNTER 2025-04-12 07:32 | Outpatient (AMB) | payer OTHER, SELFPAY ==
--- OUTSIDE RECORDS SUMMARY | 2025-04-12 07:34 | XMS_ITS | Clinical Summary ---
Author [facility] Address [address] [place] [address] Care Team Providers Care Purse Seining Hand Name Role Phone Barry Polo MD [facility] Surgical History Surgery Date Site/Laterality Comments OTHER SURGICAL HISTORY PROCEDURE: BREAST CYST,FLUID FOR CYTOLOGY EXAM TUBAL LIGATION PROCEDURE: HISTORICAL TUBAL LIGATION BELT ABDOMINOPLASTY PROCEDURE: HISTORICAL TUMMY TUCK Medical History Medical History Date Comments Irritable bowel syndrome DX:Irri table bowel syndrome Asthma DX:Asthma Perforation of sigmoid colon (CMS/HCC V24, CMS/HCC V28) DX:Perforation of sigmoid co tamara ([facility]); COMMENT: microperforation Secondary to colonoscopy Family [...] 2019 Zoster Vaccines (1 of 2) 2019 Depression Screening 06/16/2024 COVID-19 Vaccine ( - 2023-2 5 season) 2025 Influenza Vaccine (#1) 2025 RSV Immunization Adult Patie nts (1 - 1-dose 75+ series) 2044 HIB Vaccines Aged Out No longer eligi [...] age to complete this topic Care Teams Purse Seining Hand Relationship Specialty Start Date End Date Barry Polo MD [address] [place] [address] [place] [address] PCP - General Internal Medicine 08/26/18
--- NOTE | 2025-04-12 07:35 | AM.OFFWIN_ITS ---
Intake Vital Signs 04/12/25 07:37 Height 5 ft 1 in Weight 140 lb BMI 26.4 BP 110/72 Blood Pressure Location Lt brachial Position Sitting Pulse 68 Pulse Source Pulse Oximeter Temp 97.5 F Temp Source Oral Pulse Oximetry (%) 100 Oxygen Delivery Method Room Air Intake Visit Reasons: ep left eye pain and redness Intake Note: Patient presents with c/o left eye redness, pain & headache since yesterday - patient has tried eye drops for dry eye & allergy with no improvement Patient Tobacco Use Status: Never used Tobacco Allergies hydrocodone (HYDROCODONE) Allergy (Unknown, Verified 04/12/25 07:39) HYPOTENSION, VOMITING, WEAKNESS oxycodone (From PERCOCET) Allergy (Unknown, Verified 04/12/25 07:39) vomiting tramadol (TRAMADOL) Allergy (Unknown, Verified 04/12/25 07:39) vomiting Do you need a note to return to daycare/school/sports/work: No HPI HPI Comments History of Present Illness Details History of Present Illness - The patient is a 55-year-old female pr esenting with left eye pain, headache, and watery diarrhea. - Eye pain began upon waking and worsens with eye movement, with no history of trauma or scratching. - Has area of redness in the left eye wh ich she noticed this am. - Headache is present without any respir atory symptoms such as sneezing or c oughing. - Watery diarrhea is present, possibly l inked to IBS. - She has no blurry vision or double vis ion. - She has no tearing, discharge, or itch iness. - She has no cold symptoms, CP, SOB, abd pain, or n/v/d. Physical Exam General: Cooperative, healthy appearing, comfortable, no acute distress and well developed Orientation: Patient oriented x3 Limitations: No limitations Head: Normal to inspection Ears: Hearing grossly normal bilaterally Nose: Normal external nose present Face and sinus: Normal facial exam Eyes: Appearance normal. Erythema noted in the medial aspect of the left eye. PERRLA, EOMI. No corneal abrasion noted. Neck: Normal visual inspection and Yes full ROM. No lymphadenopathy noted. Respiratory: Normal respiratory effort and able to speak in complete sentences. Clear to auscultation bilaterally Cardiovascular: Regular rate and rhythm. Normal S1 and S2 Neuro: Patient oriented x3. CN II-XII intact. Patient was informed and verbally consented to the use of an ambient scribe for clinic note documentation during this visit. [facility] Medical History Perforated bowel Asthma Surgical History History of esophagogastroduodenoscopy (EGD) H/O abdominoplasty H/O bilateral breast reduction surgery Hx of colonoscopy Social History Patient Tobacco Use Status: Never used Tobacco Review of Systems Const All systems reviewed & are unremarkable except as noted in HPI and below Physical Exam Vital Signs: Last Vital Signs Temp 97.5 F 04/12/25 07:37 Pulse 68 04/12/25 07:37 BP 110/72 04/12/25 07:37 Pulse Ox 100 04/12/25 07:37 Oxygen Delivery Method Room Air 04/12/25 07:37 BMI result Body Mass Index 26.4 Office Procedures Fluorescein eye exam Details: Flourescein in the left eye. She had no uptake noted. Assessment & Plan Assessment & Plan (1) Subconjunctival hemorrhage: Code(s): H11.30 - Conjunctival hemorrhage, unspecified eye Qualifiers: Laterality: left Qualified Code(s): H11.32 - Conjunctival hemorrhage, left eye Plan Most likely Subconjunctival Hemorrhage vs corneal abrasion vs FB fluorscein dye exam performed in the office plan - Reassurance provided as the condition is self-limiting and not due to infection. - Advised to monitor for any changes or worsening of symptoms. - follow up with PCP or eye doctor for pain, blurry vision, etc Orders: Orders AMB Fluorescein eye exam Today S05.01XA - Injury of conjunctiva and corneal abrasion without foreign body, right eye, initial encounter Coding Level of Care Code Est Pt Level 3 (12617) Diagnoses Subconjunctival hemorrhage of left eye H11.32 Laterality: left
[2025-04-12 07:37] VITALS: BP 110/72; PULSE 68; TEMP 36.4; O2SAT 100; BMI 26.4
== END 2025-04-12 08:14 | disposition home or self-care (01) ==
PROVIDERS: PCP Internal Medicine; Visit Provider Physician Assistant Medical
DX: H11.32 Conjunctival hemorrhage, left eye (principal)

== ENCOUNTER 2025-04-20 08:09 | Outpatient (AMB) | payer OTHER, SELFPAY ==
--- NOTE | 2025-04-20 07:59 | A.OFFPC_ITS ---
Vital Signs 04/20/25 08:12 Height 5 ft 1 in Weight 141 lb 4 oz BMI 26.7 BP 104/64 Blood Pressure Location Lt brachial Position Sitting Respiration 16 Pulse 64 Pulse Source Pulse Oximeter Temp 97.3 F Temp Source Temporal Artery Scan Pulse Oximetry (%) 96 Oxygen Delivery Method Room Air Intake Visit Reasons: follow up - arriving for 8am Drafter Detail Required: No Accompanied by: Self / Same As Patient Allergies hydrocodone (HYDROCODONE) Allergy (Unknown, Verified 04/20/25 08:00) HYPOTENSION, VOMITING, WEAKNESS oxycodone (From PERCOCET) Allergy (Unknown, Verified 04/20/25 08:00) vomiting tramadol (TRAMADOL) Allergy (Unknown, Verified 04/20/25 08:00) vomiting omega-3 acid ethyl esters Adverse Reaction (Intermediate, Verified 04/20/25 14:24) Abdominal Pain Medication List - Last Reconciled 04/20/25 by Deonna Ruff MD albuterol sulfate 90 mcg/actuation 2 puffs inhalation Q6H PRN estradiol 0.01%(0.1mg/gram) 1 g vaginal 2XW hydrocortisone acetate 30 mg ME DAILY lorazepam 0.5 mg PO DAILY PRN magnesium 250 mg PO DAILY melatonin 10 mg PO BEDTIME PRN naproxen 500 mg PO BID PRN pantoprazole 40 mg PO DAILY tizanidine 2 mg PO Q8H PRN Tobacco use date assessed: 04/20/25 Dental Screening Dental Screen Date: 04/20/25 Did you have a dental visit in the last 12 months?: Yes Did you have a dental problem in the last 6 months where you did not have access to dental care?: No Was dental information given to patient?: Patient has dentist HPI HPI Comments History of Present Illness Details The patient is a 55-year-old female presenting for re-establishment of care and discussion of ongoing issues. Cervical disc degeneration: Diagnosed via MRI, with bone spur and C4-C5 herniation. Surgery was not recommended. Experienced left-sided neck stiffness with limited head movement. Cervical spine stenosis: Stenosis observed in MRI. Neck muscle spasms, more intense on the left. Lumbar disc herniation: Historical disc herniation in L2-L3, L4-L5, L5-S1. Intermittent sharp pain. Normal movement between episodes. 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 Vitamin d deficiency- has taken d supplement in the past Cephalgia (headaches): Severe headaches associated with rising blood pressure during pain, managed with acetaminophen, naproxen, and muscle relaxants. Medical History: - Hypertension - Chronic pain due to cervical and lumba r spine issues - Belle's cyst left leg Family History: - Family history of hypertension - Tests: MRI cervical spine showing C4-C 5 disc herniation, bone spurs, and cervical stenosis; MRI lumbar spine showing herniations L2-L3, L4-L5, L5-S1 - Ultrasound: Belle's cyst on the left l eg measured at 2.7 Review of Systems - Cardiovascular: no chest pain, no sob - Vision: Reports past subconjunctival eye hemorrhage, resolved - Musculoskeletal: Reports neck stiffnes s and muscle spasms, intermittent back pain Physical Exam - Gen: NAD - Neck- no carotid bruits - Respiratory- Clear lungs bilaterally - Card: normal s1, s2, soft murmur acros s precordium - Abdomen- SNTND, +BS - Musculoskeletal- Stiffness and pain on the left sternocleidomastoid, tenderness in paraspinals Assessment and Plan 1. Cervical disc degeneration - Physical therapy recommended, 2. Cervical spine stenosis - Non-surgical intervention continues. 3. Lumbar disc herniation - Physical therapy, monitor pain episode s. 4. 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 5. Hypertension - Monitor BP, continue current regimen 6. Left knee pain- obtain xray 7. Neutropenia- no fevers, no recent inf ections, repeat cbc 8. Vitamin d deficiency- check vitamin d levels Follow up in 6 months for physical Discussion Notes I discussed the patient's chronic and neck and back pain issues, emphasizing the benefits of physical therapy and conservative pain management to maintain function and decrease pain. For her hypertension, I advised monitoring and identifying stress as a potential contributor. Plans for imaging to reassess the Belle's cyst were discussed, intending to refine our management, potentially involving orthopedics afterward. I also encouraged obtaining laboratory studies to reassess her cholesterol levels. Patient Instructions - Continue with physical therapy as plan cristina. - Monitor blood pressure regularly and a void stress. - Schedule your ultrasound and X-ray for your left knee. - Keep a record of headaches and high bl ood pressure episodes. - Avoid surgery unless absolutely necess tom. - Follow-up with recommended lab tests. - Refer to orthopedics as needed after camilo zhang. [facility] Medical History (Updated 04/20/25 @ 16:38 by Deonna Ruff MD) Elevated LFTs Neutropenia Vitamin B12 deficiency (dietary) anemia Vitamin D deficiency Decreased white blood cell count Hyperlipidemia, unspecified Spasm of lumbar paraspinous muscle Bakers cyst Left knee pain Cervical spinal stenosis Cervical disc herniation Perforated bowel Asthma Surgical History (Updated 04/19/25 @ 16:17 by Ruthy Collins) History of esophagogastroduodenoscopy (EGD) H/O abdominoplasty H/O bilateral breast reduction surgery Hx of colonoscopy (~08/29/22) Family History (Updated 04/20/25 @ 08:15 by Deonna Ruff MD) Father Stroke Mother Diabetes Kidney problem Social History Housing: House Patient Tobacco Use Status: Never used Tobacco e-Cigarette/Vaping Use: Never Used service: No Current occupational status: employed 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 How often do you have a drink containing alcohol?: Never 3. How often do you have six or more drinks on one occasion?: Never Total Score: 0 Physical exam (Primary Care) Vital Signs: Last Vital Signs Temp 97.3 F 04/20/25 08:12 Pulse 64 04/20/25 08:12 Resp 16 04/20/25 08:12 BP 104/64 04/20/25 08:12 Pulse Ox 96 04/20/25 08:12 Oxygen Delivery Method Room Air 04/20/25 08:12 BMI result Body Mass Index 26.7 Tobacco/Smoking Status: Tobacco use Status Tobacco use date assessed 04/20/25 04/20/25 08:00 Patient Tobacco Use Status Never used Tobacco 04/20/25 08:00 e-Cigarette/Vaping Use Never Used 04/20/25 08:18 Coding Level of Care Code Est Pt Level 4 (06663) Complex EM visit Add On G2211 Diagnoses Cervical disc herniation M50.20 Cervical spinal stenosis M48.02 Chronic pain of left knee M25.562; G89.29 Chronicity: chronic Spasm of lumbar paraspinous muscle M62.830 Synovial cyst of left popliteal space M71.22 Laterality: left Gastroesophageal reflux disease with esophagitis, unspecified whether hemorrhage K21.00 Esophagitis bleeding: unspecified whether hemorrhage Hyperlipidemia, unspecified hyperlipidemia type E78.5 Hyperlipidemia type: unspecified Vitamin D deficiency E55.9 Assessment & Plan Assessment & Plan (1) Cervical disc herniation: Code(s): M50.20 - Other cervical disc displacement, unspecified cervical region Category: Medical (2) Cervical spinal stenosis: Code(s): M48.02 - Spinal stenosis, cervical region Category: Medical (3) Left knee pain: Code(s): M25.562 - Pain in left knee Category: Medical Qualifiers: Chronicity: chronic Qualified Code(s): M25.562 - Pain in left knee; G89.29 - Other chronic pain (4) Spasm of lumbar paraspinous muscle: Code(s): M62.830 - Muscle spasm of back Category: Medical (5) Bakers cyst: Code(s): M71.20 - Synovial cyst of popliteal space [Belle], unspecified knee Category: Medical Qualifiers: Laterality: left Qualified Code(s): M71.22 - Synovial cyst of popliteal space [Belle], left knee (6) GERD with esophagitis: Code(s): K21.00 - Gastro-esophageal reflux disease with esophagitis, without bleeding Category: Medical Qualifiers: Esophagitis bleeding: unspecified whether hemorrhage Qualified Code(s): K21.00 - Gastro-esophageal reflux disease with esophagitis, without bleeding (7) Hyperlipidemia, unspecified: Code(s): E78.5 - Hyperlipidemia, unspecified Category: Medical Qualifiers: Hyperlipidemia type: unspecified Qualified Code(s): E78.5 - Hyperlipidemia, unspecified (8) Vitamin D deficiency: Code(s): E55.9 - Vitamin D deficiency, unspecified Category: Medical Plan - Follow up with physical therapy - Request ultrasound and knee X-ray worsening knee pain - Regular BP monitoring and stress management advised. Orders: Orders XR knee LT 3V Today Deonna Ruff MD M25.562 - Pain in left knee, M71.20 - Synovial cyst of popliteal space [Belle], unspecified knee Complete Blood Count Auto Diff Today Deonna Ruff MD D72.819 - Decreased white blood cell count, unspecified, E78.5 - Hyperlipidemia, unspecified, K21.00 - Gastro-esophageal reflux disease with esophagitis, without bleeding Comprehensive Met. Panel Today Deonna Ruff MD D72.819 - Decreased white blood cell count, unspecified, E78.5 - Hyperlipidemia, unspecified, K21.00 - Gastro-esophageal reflux disease with esophagitis, without bleeding Vitamin B12 Today Deonna Ruff MD D51.8 - Other vitamin B12 deficiency anemias, E55.9 - Vitamin D deficiency, unspecified HIV Ab/Ag Today Denona Ruff MD D70.9 - Neutropenia, unspecified, R79.89 - Other specified abnormal findings of blood chemistry PT Evaluation and Treatment Today Deonna Ruff MD M25.562 - Pain in left knee, M48.02 - Spinal stenosis, cervical region, M62.830 - Muscle spasm of back US venous duplex LE LT Today Deonna Ruff MD M71.20 - Synovial cyst of popliteal space [Belle], unspecified knee Lipid Panel Today Deonna Ruff MD D72.819 - Decreased white blood cell count, unspecified, E78.5 - Hyperlipidemia, unspecified, K21.00 - Gastro- esophageal reflux disease with esophagitis, without bleeding Vitamin D 25-OH Total Today Deonna Ruff MD D51.8 - Other vitamin B12 deficiency anemias, E55.9 - Vitamin D deficiency, unspecified Hepatitis A,B,C Profile Today Deonna Ruff MD D70.9 - Neutropenia, unspecified, R79.89 - Other specified abnormal findings of blood chemistry Referrals Hematology & Oncology Referral Deonna Ruff MD D70.9 - Neutropenia, unspecified Medications: Changed From naproxen 500 mg PO BID 20 tabs 0RF To naproxen 500 mg PO BID PRN Kasey Do PA-C
[2025-04-20 08:12] VITALS: BP 104/64; PULSE 64; RESP 16; TEMP 36.3; O2SAT 96; BMI 26.7
--- OUTSIDE RECORDS SUMMARY | 2025-04-20 08:19 | XMS_ITS | Clinical Summary ---
Author Organization [facility] Address [address] [place] [address] Care Team Providers Care Hand Welt Butter Name Role Phone [facility] Polo MD [facility] Surgical History Surgery Date Site/Laterality Comments OTHER SURGICAL HISTORY PROCEDURE: BREAST CYST,FLUID FOR CYTOLOGY EXAM TUBAL LIGATION PROCEDURE: HISTORICAL TUBAL LIGATION BELT ABDOMINOPLASTY PROCEDURE: HISTORICAL TUMMY TUCK Medical History Medical History Date Comments Irritable bowel syndrome DX:Irri table bowel syndrome Asthma DX:Asthma Perforation of sigmoid colon (CMS/HCC V24, CMS/HCC V28) DX:Perforation of sigmoid co tamara ([facility]); COMMENT: microperforation Secondary to [...] age to complete this topic Care Teams Hand Welt Butter Relationship Specialty Start Date End Date Barry Polo MD [address] [place] [address] [place] [address] PCP - General Internal Medicine 08/26/18
== END 2025-04-20 09:01 | disposition home or self-care (01) ==
LOC: HO.HMCHD 08:09
PROVIDERS: PCP Internal Medicine; Visit Provider Internal Medicine
DX: M50.20 Other cervical disc displacement, unspecified cervical region (principal); M48.02 Spinal stenosis, cervical region; M25.562 Pain in left knee; G89.29 Other chronic pain; M62.830 Muscle spasm of back; M71.22 Synovial cyst of popliteal space [Baker], left knee; K21.00 Gastro-esophageal reflux disease with esophagitis, without bleeding; E78.5 Hyperlipidemia, unspecified; E55.9 Vitamin D deficiency, unspecified

== ENCOUNTER 2025-04-20 09:04 | Outpatient (REF) | payer OTHER, SELFPAY ==
[2025-04-20 10:33] LABS: MANUAL DIFF FLAG NO
[2025-04-20 10:53] LABS: Hematocrit 44.7 % (37.0-47.0); Hemoglobin 14.9 g/dl (12.0-16.0); Imm Gran Abs Auto 0.01 X10*3/uL (0.00-0.03); Imm Gran Pct Auto 0.2 % (0.0-0.4); Lymphocytes Absolute Auto 2.1 X10*3/uL (1.2-4.9); Mean Corpuscular HGB Conc 33.3 g/dl (31.0-35.0); Mean Corpuscular Hemoglobin 28.8 pg (27.0-33.0); Mean Corpuscular Volume 86.5 fL (80.0-98.0); NRBC Abs Auto 0.000 X10*3/uL (0.0-0.012); NRBC Pct Auto 0.0 /100WBC (0.0-0.2); Platelet Count 321 X10*3/uL (160-400); Red Blood Count 5.17 X10*6/uL (4.20-5.50); White Blood Count 4.1 X10*3/uL (4.8-10.8)
[2025-04-20 11:23] LABS: Alanine Aminotransferase 31 U/L (0-31); Albumin Level 4.8 g/dL (3.5-5.0); Alkaline Phosphatase 129 U/L (39-117); Anion Gap 10 (12-20); Aspartate Amino Transferase 25 U/L (5-31); Blood Urea Nitrogen 19 mg/dL (9-16); Calcium 9.3 mg/dL (8.4-10.2); Carbon Dioxide 28 mmol/L (22-29); Chloride 108 mmol/L (96-108); Cholesterol 278 mg/dL (<200); Estimated Glomerular Filt Rate > 60; HDL Cholesterol 71 mg/dL (>40); Potassium 3.9 mmol/L (3.3-5.1); Sodium 142 mmol/L (135-145); Total Protein 8.1 g/dL (6.5-8.0); Triglycerides 100 mg/dL (<150)
[2025-04-20 11:32] LABS: Vitamin B12 739 pg/mL (200-900)
[2025-04-21 08:29] LABS: HBS Num1 3.63 mIU/mL (0-7.99); HBc Num1 0.05 S/CO (0.00-0.79); HBsAGNum1 0.34 S/CO (0.00-0.99); HIV Num 1 0.05 S/CO (0.00-0.99); Hepatitis A Antibody IgM 0.22 Index (0-0.79); Hepatitis B Surface Antigen Negative (Negative); ~HepC Num1 0.04 S/CO (0.00-0.79); ~Hepatitis A Antibody IgM Nonreactive (Nonreactive); ~Hepatitis B Surface Antibody NONREACTIVE (Nonreactive); ~Hepatitis C Antibody Nonreactive (Nonreactive)
== END 2025-04-20 09:05 | disposition home or self-care (01) ==
LOC: HO.10HDL 09:04
PROVIDERS: Visit Provider Internal Medicine
DX: Z11.4 Encounter for screening for human immunodeficiency virus [HIV] (principal); K21.00 Gastro-esophageal reflux disease with esophagitis, without bleeding; D51.8 Other vitamin B12 deficiency anemias; R79.89 Other specified abnormal findings of blood chemistry; E78.5 Hyperlipidemia, unspecified; D72.819 Decreased white blood cell count, unspecified; E55.9 Vitamin D deficiency, unspecified
CPT/HCPCS: 36415; 80053; 80061; 82306; 82607; 85025; 86704; 86706; 86709; 86803; 87340; 87389

== ENCOUNTER 2025-04-22 07:07 | Outpatient (REF) | payer OTHER, SELFPAY ==
--- NOTE | ~2025-04-22 | XR_ITS ---
EXAMINATION: XR KNEE, LEFT CLINICAL INFORMATION: M25.562 - Pain in left knee COMPARISON: None available. TECHNIQUE: Four views of the left knee. FINDINGS: No fracture, dislocation, or suspicious bone lesion. Normal bone mineralization. Normal alignment. Minimal narrowing of the medial compartment joint space. The lateral and patellofemoral joint spaces are preserved. No significant joint effusion. Soft tissues appear normal. XR/XR knee LT 4V IMPRESSION: 1. No acute bony or soft tissue abnormalities. 2. Minimal medial compartment joint space narrowing. Electronically signed by: Felipe Guzman MD 04/22/2025 08:56 AM [facility]
--- OUTSIDE RECORDS SUMMARY | 2025-04-22 07:10 | XMS_ITS | Clinical Summary ---
Author Organization [facility] Address [address] [place] [address] Care Team Providers Care Supervisor Printing [employer] Name Role Phone [facility] Pol[facility] Surgical History Surgery Date Site/Laterality Comments OTHER SURGICAL HISTORY PROCEDURE: BREAST CYST,FLUID FOR CYTOLOGY EXAM TUBAL LIGATION PROCEDURE: HISTORICAL TUBAL LIGATION BELT ABDOMINOPLASTY PROCEDURE: HISTORICAL TUMMY TUCK Medical History Medical History Date Comments Irritable bowel syndrome DX:Irri table bowel syndrome Asthma DX:Asthma Perforation of sigmoid colon (CMS/HCC V24, CMS/HCC V28) DX:Perforation of sigmoid co tamara ([facility]); COMMENT: microperforation Secondary to colonoscopy [...] age to complete this topic Care Teams Supervisor [employer]ing [employer] Relationship Specialty Start Date End Date Barry Polo MD [address] [place] [address] [place] [address] PCP - General Internal Medicine 08/26/18
== END 2025-04-22 07:08 | disposition home or self-care (01) ==
LOC: HO.HMGCX 07:07
PROVIDERS: PCP Internal Medicine; Visit Provider Internal Medicine
DX: M25.562 Pain in left knee (principal)
CPT/HCPCS: 73564

== ENCOUNTER → 2025-04-22 08:40 | Outpatient (BNV) | payer OTHER, SELFPAY | PROVIDERS: PCP Internal Medicine; Visit Provider Radiology Diagnostic Radiology | DX: M25.562 Pain in left knee (principal) | CPT/HCPCS: 73564 ==

== ENCOUNTER 2025-05-09 12:46 | Outpatient (REF) | payer OTHER, SELFPAY ==
--- NOTE | ~2025-05-09 | US_ITS ---
Examination: US Extremity Nonvas Limited Lt TECHNIQUE: Grayscale and color Doppler imaging was performed in the left popliteal fossa. COMPARISON: The x-ray number 01/02/2025. INDICATION: M71.22 - Synovial cyst of popliteal space [Belle], left knee Findings: There is a lobulated anechoic region with increased through transmission in the popliteal fossa measuring 3.0 x 1.2 x 1.7 cm. On color Doppler, there is no internal blood flow. No other abnormalities are seen. US/US Extremity Nonvas Limited LT IMPRESSION: There is a small Belle's cyst in left knee. Electronically signed by: Chang Sims MD 05/09/2025 01:22 PM EST
--- OUTSIDE RECORDS SUMMARY | 2025-05-09 16:56 | XMS_ITS | Clinical Summary ---
Author Organization [facility] Address [address] [place] [address] Care Team Providers Care Aws Developer Name Role Phone Barry Polo MD [facility] Surgical History Surgery Date Site/Laterality Comments OTHER SURGICAL HISTORY PROCEDURE: BREAST CYST,FLUID FOR CYTOLOGY EXAM TUBAL LIGATION PROCEDURE: HISTORICAL TUBAL LIGATION BELT ABDOMINOPLASTY PROCEDURE: HISTORICAL TUMMY TUCK Medical History Medical History Date Comments Irritable bowel syndrome DX:Irri table bowel syndrome Asthma DX:Asthma Perforation of sigmoid colon (CMS/HCC V24, CMS/HCC V28) DX:Perforation of sigmoid co tamara ([facility]); COMMENT: microperforation Secondary to colonoscopy Family History [...] 2) 2019 Depression Screening 06/16/2024 COVID-19 Vaccine (1 - 2024-2 6 season) 2025 Influenza Vaccine (#1) 2025 RSV [...] age to complete this topic Care Teams Aws Developer Relationship Specialty Start Date End Date Barry Polo MD [address] [place] [address] [place] [address] PCP - General Internal Medicine 08/26/18
== END 2025-05-09 12:47 | disposition home or self-care (01) ==
LOC: HO.HMGCX 12:46
PROVIDERS: PCP Internal Medicine; Visit Provider Internal Medicine
DX: M71.22 Synovial cyst of popliteal space [Baker], left knee (principal)
CPT/HCPCS: 76882

== ENCOUNTER → 2025-05-09 12:48 | Outpatient (BNV) | payer OTHER, SELFPAY | PROVIDERS: PCP Internal Medicine; Visit Provider Radiology Diagnostic Radiology | DX: M71.22 Synovial cyst of popliteal space [Baker], left knee (principal) | CPT/HCPCS: 76882 ==

== ENCOUNTER → 2025-05-30 14:26 | Outpatient (BNV) | payer OTHER, SELFPAY | PROVIDERS: PCP Internal Medicine; Referring Provider Internal Medicine; Visit Provider Internal Medicine Medical Oncology | DX: D72.819 Decreased white blood cell count, unspecified (principal) | CPT/HCPCS: 99204 ==